=== PATIENT | female | born 1950 | race Caucasian/White ===

== ENCOUNTER 2019-04-06 09:42 | Outpatient (CLI) | payer MEDICARE, OTHER, SELFPAY ==
--- NOTE | ~2019-04-06 | MM_ITS ---
EXAMINATION: MM screening [facility] BI w florentin HISTORY: Screening mammogram TECHNIQUE: Craniocaudal and mediolateral oblique 3-D tomosynthesis images were obtained and synthetic 2-D images were generated. CAD analysis was submitted and interpreted. COMPARISON: Comparison to multiple prior studies sequentially, with oldest reviewed study dated 12/11. BREAST PARENCHYMAL COMPOSITION: There are scattered areas of fibroglandular density. FINDINGS: There is no evidence of suspicious mass, calcification, or architectural distortion to sugg est malignancy in either breast. There has been no suspicious interval change. IMPRESSION: 1. No mammographic evidence of malignancy. 2. Recommend routine screening mammography in one year. BI-RADS Category 1: Negative Reviewed, dictated and finalized at location A. D BUILDER
== END 2019-04-06 09:43 | disposition home or self-care (01) ==
PROVIDERS: PCP Family Medicine; Visit Provider Family Medicine
DX: Z12.31 Encounter for screening mammogram for malignant neoplasm of breast (principal)
CPT/HCPCS: 77063; 77067

== ENCOUNTER 2020-03-27 07:51 | Outpatient (CLI) | payer MEDICARE, OTHER, SELFPAY ==
--- NOTE | ~2020-03-27 | US_ITS ---
EXAMINATION: US right upper quadrant DATE: 03/27/2020 08:25 INDICATION: Right upper quadrant pain TECHNIQUE: Multiple grayscale and Doppler ultrasound images of the abdomen were obtained. COMPARISON: 03/02/2018 FINDINGS: Bowel gas obscures visualization of the pancreas. The liver is normal with normal echogenic ity and echotexture. No surface nodularity. Normal hepatopetal flow in the main portal vein. The gall bladder is surgically absent. The normal common bile duct measures 4 mm. IMPRESSION: 1. Unremarkable postcholecystectomy ultrasound. Reviewed, dictated and finalized at location A. RVISOR PUBLICATIONS
== END 2020-03-27 07:52 | disposition home or self-care (01) ==
LOC: ANHIMG 08:01
PROVIDERS: PCP Family Medicine; Visit Provider Nurse Practitioner
DX: R10.11 Right upper quadrant pain (principal)
CPT/HCPCS: 76705

== ENCOUNTER 2020-04-11 09:46 | Outpatient (CLI) | payer MEDICARE, OTHER, SELFPAY ==
--- NOTE | ~2020-04-11 | MM_ITS ---
EXAMINATION: MM screening [facility] BI w florentin HISTORY: Screening TECHNIQUE: Craniocaudal and mediolateral oblique 3-D tomosynthesis images were obtained and synthetic 2-D images were generated. CAD analysis was submitted and interpreted. COMPARISON: Comparison to multiple prior studies sequentially, with oldest reviewed study dated 01/10. BREAST PARENCHYMAL COMPOSITION: There are scattered areas of fibroglandular density. FINDINGS: There is no evidence of suspicious mass, calcification, or architectural distortion to sugg est malignancy in either breast. There has been no suspicious interval change. IMPRESSION: 1. No mammographic evidence of malignancy. 2. Recommend routine screening mammography in one year. BI-RADS Category 1: Negative Reviewed, dictated and finalized at location A. CATCHER
== END 2020-04-11 09:47 | disposition home or self-care (01) ==
LOC: ANHIMG 09:50
PROVIDERS: PCP Family Medicine; Visit Provider Family Medicine
DX: Z12.31 Encounter for screening mammogram for malignant neoplasm of breast (principal)
CPT/HCPCS: 77063; 77067

== ENCOUNTER 2020-06-27 09:09 | Outpatient (CLI) | payer MEDICARE, OTHER, SELFPAY ==
--- NOTE | ~2020-06-27 | XR_ITS ---
EXAMINATION: XR knee LT min 4V DATE: 06/27/2020 09:34 INDICATION: Left knee pain. TECHNIQUE: 4 views of left knee were obtained. COMPARISON: Left knee radiographs 01/17/2009 FINDINGS: Bone alignment is normal. No fracture. There is moderate osteoarthritis of medial compartme nt and mild osteoarthritis of lateral and patellofemoral compartments. There is a small knee joint ef fusion. IMPRESSION: 1. Moderate left knee osteoarthritis. 2. Small left knee joint effusion. Reviewed, dictated and finalized at location A.
--- NOTE | ~2020-06-27 | XR_ITS ---
EXAMINATION: XR lumbar spine 2-3V, XR sacrum coccyx min 2V EXAM DATE: 06/27/2020 09:34 INDICATION: Low back pain, lumbosacral pain. TECHNIQUE: Lumber spine frontal, lateral, lateral L5-S1 projections for interpretation. Sacrococcyge al frontal, inlet, lateral projections. Comparison is made to prior examination from 03/09/10. FINDINGS: Mildly comminuted distal sacral fracture with about 6 mm anterior displacement, probably ac sault ste[place] marie to subacute in age. There is a transitional L5 segment which is fused to the sacrum. There is 3 m m anterolisthesis L4 on L5. The vertebral bodies are otherwise aligned. Moderate to severe disc disea se L3-L5, moderate from T11 through L3. There is L4 limbus vertebral body. Small to moderate-sized en dplate osteophytes. Moderate to severe lower lumbar facet arthropathy. Moderate scattered aortic dick riosclerosis. There are cholecystectomy clips. IMPRESSION: 1. Distal sacral fracture with mild anterior displacement, comminution. 2. Moderate to severe lumbar spondylosis. Reviewed, dictated and finalized at location A. IMPRESSION: 1. Distal sacral fracture with mild anterior displacement, comminution. 2. Moderate to severe lumbar spondylosis.
== END 2020-06-27 09:10 | disposition home or self-care (01) ==
LOC: ANHIMG 09:16
PROVIDERS: PCP Family Medicine; Visit Provider Nurse Practitioner
DX: M47.816 Spondylosis without myelopathy or radiculopathy, lumbar region (principal); M17.12 Unilateral primary osteoarthritis, left knee
CPT/HCPCS: 72100; 72220; 73564

== ENCOUNTER → 2020-07-14 08:10 | Outpatient (CLI) | payer MEDICARE, OTHER, SELFPAY ==
--- NOTE | ~2020-07-14 | MR_ITS ---
EXAMINATION: MR lumbar spine wo con DATE: 07/14/2020 08:59 INDICATION: Low back pain. Sacral fracture. TECHNIQUE: Magnetic resonance imaging (MRI) of the lumbar spine was performed without intravenous con trast. Sequences included sagittal T2-weighted FSE, sagittal T2-weighted FS FSE, sagittal T1-weighted FSE, and axial T2-weighted FSE. COMPARISON: Lumbar spine radiographs 06/27/2020, CT abdomen and pelvis 03/03/2019 FINDINGS: There is a transitional segment at lumbosacral junction that is designated L5. There is 3 m m anterolisthesis of L4 on L5. There are Schmorl's nodes at most levels. There is moderately decrease d disc height at T12-L1, severely decreased disc height at L1-L2, moderately decreased disc height at L2-L3, severely decreased disc height at L3-L4, and mildly decreased disc height at L4-L5 with endpl ate remodeling. There is ligamentum flavum hypertrophy at the disc levels from L1-L2 through L4-L5. E pidural lipomatosis is noted. The distal spinal cord signal intensity is normal. The conus medullaris is at T12. The following disc levels are specifically discussed: T12-L1: The disc is bulging and has an annular fissure. There is mild bilateral facet joint osteoarth ritis. There is mild right and moderate left neural foraminal stenosis. There is mild central canal s tenosis. L1-L2: The disc is bulging and has an annular fissure. There is severe bilateral facet joint osteoart hritis. There is moderate bilateral neural foraminal stenosis. There is moderate central canal stenos is. L2-L3: The disc is bulging and has an annular fissure. There is severe bilateral facet joint osteoart hritis. There is moderate bilateral neural foraminal stenosis. There is moderate central canal stenos is. L3-L4: The disc is bulging and has an annular fissure. There is severe bilateral facet joint osteoart hritis. There is moderate bilateral neural foraminal stenosis. There is moderate central canal stenos is. L4-L5: The disc does not extend beyond the endplate margin. There is severe bilateral facet joint ost eoarthritis. There is mild bilateral neural foraminal stenosis. There is no central canal stenosis. L5-S1: The disc does not extend beyond the endplate margin. There is no facet joint osteoarthritis. T here is no neural foraminal stenosis. There is no central canal stenosis. IMPRESSION: 1. Severe lumbar spondylosis. Reviewed, dictated and finalized at location A.
== END ==
PROVIDERS: Visit Provider Nurse Practitioner
DX: M47.896 Other spondylosis, lumbar region (principal)
CPT/HCPCS: 72148

== ENCOUNTER → 2020-08-28 13:23 | Outpatient (CLI) | payer MEDICARE, OTHER, SELFPAY ==
--- NOTE | ~2020-08-28 | DEXA_ITS ---
Bone Density Report Name: Julianne Herring Age: 69 Sex: Female Ethnicity: White Date of : 1950 Indication: postmenopausal; screening for osteoporosis; height loss; hysterectomy; Referring Provider: Michael, Bertha Sanchez Study: Bone densitometry was performed. Exam Date: August 28, 2020 Accession number: [id number] Bone Density: Region BMD T-score Z-score Classification AP Spine (L1, L2, L3) 1.384 3.3 5.2 Normal Femoral Neck (Left) 0.887 0.3 2.0 Normal Total Hip (Left) 0.997 0.5 1.8 Normal Femoral Neck (Right) 1.010 1.4 3.1 Normal Total Hip (Right) 1.074 1.1 2.5 Normal Total Hip Mean 1.036 0.8 2.2 Normal World Health Organization criteria for BMD impression classify patients as: Normal (T-score at or above -1.0), Osteopenia (T-score between -1.0 and -2.5), or Osteoporosis (T-score at or below -2.5). 10-year Fracture Risk: FRAX not reported because: All T-scores for Spine Total, Hip Total, Femoral Neck at or above -1.0 Clinical Information Provided by Patient: Has used the following medications: Vitamin D Has the following medical conditions: Hysterectomy Patient maximum height was 67 Menopause Age: 33 No regular weight bearing exercise Drinks caffeinated beverages Onset of menses at age 15 Number of children 2 Impression: The patient has normal bone mass. Discussion: BONE DENSITY IS ABOVE THE MINIMUM DESIRABLE LEVEL AT ALL SKELETAL SITES TESTED. This patient?s bone mineral density is above the minimum desirable level (T-score -1.0 or better) at all sites measured. The patient should follow a healthful lifestyle (good nutrition with adequate calcium and vitamin D, and appropriate weight-bearing exercise). Follow-Up: Consider repeating this study in 5 years or sooner if there is some new clinical indication. Reported by: JUAN LUIS on 08/28/2020 1:45:00 PM. Reviewed, dictated and finalized at location ALaisha VIRAMONTES
== END ==
PROVIDERS: PCP Family Medicine; Visit Provider Nurse Practitioner
DX: S32.10XA Unspecified fracture of sacrum, initial encounter for closed fracture (principal); X58.XXXA Exposure to other specified factors, initial encounter
CPT/HCPCS: 77080

== ENCOUNTER 2021-04-24 10:31 | Outpatient (CLI) | payer MEDICARE, OTHER, SELFPAY ==
--- NOTE | ~2021-04-24 | MM_ITS ---
EXAMINATION: MM screening [facility] BI w florentin HISTORY: Screening mammogram TECHNIQUE: Craniocaudal and mediolateral oblique 3-D tomosynthesis images were obtained and synthetic 2-D images were generated. CAD analysis was submitted and interpreted. COMPARISON: 04/11/2020, 04/06/2019, 04/02/2018 BREAST PARENCHYMAL COMPOSITION: There are scattered areas of fibroglandular density. FINDINGS: There is no evidence of suspicious mass, calcification, or architectural distortion to sugg est malignancy in either breast. There has been no suspicious interval change. IMPRESSION: 1. No mammographic evidence of malignancy. 2. Recommend routine screening mammography in one year. BI-RADS Category 1: Negative Reviewed, dictated and finalized at location A.
== END 2021-04-24 10:32 | disposition home or self-care (01) ==
LOC: ANHIMG 10:32
PROVIDERS: PCP Family Medicine; Visit Provider Family Medicine
DX: Z12.31 Encounter for screening mammogram for malignant neoplasm of breast (principal)
CPT/HCPCS: 77063; 77067

== ENCOUNTER 2021-12-06 12:48 | Outpatient (CLI) | payer MEDICARE, OTHER, SELFPAY ==
--- NOTE | ~2021-12-06 | US_ITS ---
EXAMINATION: US carotid duplex BI DATE: 12/06/2021 14:05 INDICATION: Carotid atherosclerosis and stenosis. Headache, hypertension, neck pain, dizziness and gi ddiness. TECHNIQUE: Grayscale, color Doppler, and pulsed Doppler images of the cervical carotid arteries were obtained. The degree of vessel stenosis is placed in one of the following categories: normal, <50%, 5 0-69%, >=70% but less than near-occlusion, near-occlusion, or total occlusion. Note that percent sten osis relative to normal distal artery lumen diameter is indirectly measured from velocity measurement s as described by Urbano, et al. Radiology 2003; 229:340-346. COMPARISON: 04/25/2016 FINDINGS: RIGHT: The right common carotid artery (CCA) peak systolic velocity (PSV) is 100 cm/s. The right internal ca rotid artery (ICA) PSV is 103 cm/s. The right ICA end-diastolic velocity (EDV) is 27 cm/s. The right ICA/CCA PSV ratio is 1.0. Grayscale and color Doppler images yield an estimate of <50% diameter reduc tion from plaque in the ICA. The external carotid artery (ECA) PSV is 118 cm/s. There is antegrade fl ow in the right vertebral artery. LEFT: The left CCA PSV is 86 cm/s. The left ICA PSV is 114 cm/s. The left ICA EDV is 36 cm/s. The left ICA/ CCA PSV ratio is 1.3. Grayscale and color Doppler images yield an estimate of <50% diameter reduction from plaque in the ICA. The ECA PSV is 76 cm/s. There is antegrade flow in the left vertebral artery . IMPRESSION: 1. <50% stenosis in the right internal carotid artery. 2. <50% stenosis in the left internal carotid artery. Reviewed, dictated and finalized at location A.
== END 2021-12-06 12:49 | disposition home or self-care (01) ==
PROVIDERS: PCP Family Medicine; Visit Provider Nurse Practitioner Adult Health
DX: R51.9 Headache, unspecified (principal); R42 Dizziness and giddiness; I10 Essential (primary) hypertension; M54.2 Cervicalgia; I65.23 Occlusion and stenosis of bilateral carotid arteries
CPT/HCPCS: 93880

== ENCOUNTER 2022-06-06 09:52 | Outpatient (CLI) | payer MEDICARE, OTHER, SELFPAY ==
--- NOTE | ~2022-06-06 | MM_ITS ---
EXAMINATION: MM screening [facility] BI w florentin HISTORY: Screening mammogram TECHNIQUE: Craniocaudal and mediolateral oblique 3-D tomosynthesis images were obtained and synthetic 2-D images were generated. CAD analysis was submitted and interpreted. COMPARISON: 04/24/2021, 04/11/2020, 04/06/2019 bilateral screening mammogram examinations BREAST PARENCHYMAL COMPOSITION: The breasts are almost entirely fatty. FINDINGS: There is no evidence of suspicious mass, calcification, or architectural distortion to sugg est malignancy in either breast. There has been no suspicious interval change. IMPRESSION: 1. No mammographic evidence of malignancy. 2. Recommend routine screening mammography in one year. BI-RADS Category 1: Negative Reviewed, dictated and finalized at location A.
== END 2022-06-06 09:53 | disposition home or self-care (01) ==
LOC: ANHIMG 09:55
PROVIDERS: PCP Family Medicine; Visit Provider Family Medicine
DX: Z12.31 Encounter for screening mammogram for malignant neoplasm of breast (principal)
CPT/HCPCS: 77063; 77067

== ENCOUNTER 2023-08-07 12:30 | Outpatient (CLI) | payer MEDICARE, OTHER, SELFPAY ==
--- NOTE | ~2023-08-07 | US_ITS ---
US renal BI Ordering provider: Alexis Murphy, [facility] RESEARCHER History: . BI FLANK PAIN . Comparison: None. Technique: Ultrasound bilateral kidneys. Findings: RIGHT KIDNEY: Measures 10.2x 6.1x 5.8 cm in length which is normal in size. No renal cysts. No renal mass or visualized echogenic stones. Otherwise, normal echotexture and contour. No hydronephrosis. No rmal renal cortical thickness. Trace of fluid is seen around the kidney. LEFT KIDNEY: Measures 11.9x 6.2x 5.9 cm in length which is normal in size. Inferior pole cyst is seen measuring 1 x 0.8 x 1.2 cm. No renal mass or visualized echogenic stones. Otherwise, normal echotext ure and contour. No hydronephrosis. Normal renal cortical thickness. BLADDER: Normal. The volume is 273 mL Ureteral jets were not seen bilaterally. IMPRESSION: Trace of fluid around the right kidney. Small cyst in the left kidney. Otherwise, normal study. Reviewed, dictated and finalized at location A.
== END 2023-08-07 12:31 | disposition home or self-care (01) ==
LOC: ANHIMG 12:34
PROVIDERS: PCP Family Medicine; Visit Provider Registered Nurse
DX: N28.1 Cyst of kidney, acquired (principal)
CPT/HCPCS: 76775

== ENCOUNTER 2023-08-21 09:43 | Outpatient (CLI) | payer MEDICARE, OTHER, SELFPAY ==
--- NOTE | ~2023-08-21 | MM_ITS ---
EXAMINATION: MM screening [facility] BI w florentin HISTORY: Screening TECHNIQUE: Craniocaudal and mediolateral oblique 3-D tomosynthesis images were obtained and synthetic 2-D images were generated. CAD analysis was submitted and interpreted. COMPARISON: Comparison to multiple prior studies sequentially, with oldest reviewed study dated 03/27. BREAST PARENCHYMAL COMPOSITION: Not dense: There are scattered areas of fibroglandular density. FINDINGS: There is no evidence of suspicious mass, calcification, or architectural distortion to sugg est malignancy in either breast. There has been no suspicious interval change. IMPRESSION: 1. No mammographic evidence of malignancy. 2. Recommend routine screening mammography in one year. BI-RADS Category 1: Negative Reviewed, dictated and finalized at location B.
== END 2023-08-21 09:44 | disposition home or self-care (01) ==
LOC: ANHIMG 09:44
PROVIDERS: PCP Family Medicine; Visit Provider Family Medicine
DX: Z12.31 Encounter for screening mammogram for malignant neoplasm of breast (principal)
CPT/HCPCS: 77063; 77067

== ENCOUNTER 2023-09-24 09:30 | Outpatient (RCR) | payer MEDICARE, OTHER, SELFPAY ==
[2023-09-02 10:40] VITALS: BMI 32.0
[2023-09-24 09:35] VITALS: BMI 31.8
[2023-09-24 12:55] VITALS: BMI 31.8
== END 2023-11-17 10:16 | disposition home or self-care (01) ==
LOC: ANHDMC 09:30
PROVIDERS: PCP Family Medicine; Visit Provider Family Medicine
DX: E11.9 Type 2 diabetes mellitus without complications (principal); Z71.3 Dietary counseling and surveillance
CPT/HCPCS: 97802; 97803

== ENCOUNTER 2024-08-07 11:52 | Outpatient (CLI) | payer MEDICARE, OTHER, SELFPAY ==
--- NOTE | ~2024-08-07 | US_ITS ---
EXAMINATION: US renal BI DATE: 08/07/2024 12:15 INDICATION: R94.4 - Abnormal results of kidney function studies TECHNIQUE: Multiple grayscale and Doppler ultrasound images of the kidneys were obtained. COMPARISON: 08/07/2023; CT abdomen pelvis 03/03/2019 FINDINGS: The right kidney measures 11.0 x 5.8 x 5.0 cm. The left kidney measures 12.2 x 4.5 x 4.8 cm. The kidn eys demonstrate normal parenchymal echogenicity. 1.9 cm simple appearing left inferior pole cyst Ther e is no hydronephrosis. The bladder is partially decompressed and incompletely evaluated. IMPRESSION: Unremarkable renal sonogram findings. Reviewed, dictated and finalized at location K.
== END 2024-08-07 11:53 | disposition home or self-care (01) ==
LOC: MICIMG 11:53
PROVIDERS: PCP Family Medicine; Visit Provider Internal Medicine Nephrology
DX: R94.4 Abnormal results of kidney function studies (principal); E11.9 Type 2 diabetes mellitus without complications; I10 Essential (primary) hypertension
CPT/HCPCS: 76775

== ENCOUNTER 2024-09-22 14:10 | Outpatient (CLI) | payer MEDICARE, OTHER, SELFPAY ==
--- NOTE | ~2024-09-22 | MM_ITS ---
EXAMINATION: MM screening [facility] BI w florentin HISTORY: Screening TECHNIQUE: Craniocaudal and mediolateral oblique 3-D tomosynthesis images were obtained and synthetic 2-D images were generated. CAD analysis was submitted and interpreted. COMPARISON: Comparison to multiple prior studies sequentially, with oldest reviewed study dated 04/02. BREAST PARENCHYMAL COMPOSITION: Not dense: There are scattered areas of fibroglandular density. FINDINGS: There is no evidence of suspicious mass, calcification, or architectural distortion to sugg est malignancy in either breast. There has been no suspicious interval change. IMPRESSION: 1. No mammographic evidence of malignancy. 2. Recommend routine screening mammography in one year. BI-RADS Category 1: Negative Reviewed, dictated and finalized at location A.
--- OUTSIDE RECORDS SUMMARY | 2024-09-22 14:16 | XMS_ITS | Clinical Summary ---
Author Organization [facility] Physician Office Building [address] [place] [id number] Care Team Providers Care Meter Repairer Name Role Phone Jass Calix MD Primary Care Provider [phone] Doreen Cote MD Unavailable [phone] Pan Abdullahi MD Unavailable [phone] Allergies Active Allergy Reactions Criticality Noted Date Comments Edward Inhibitors Unknown 10/03/2015 Glimepiride Hives Medium 07/09/2018 Hydrocodone Headache High 07/09/2018 Ibuprofen Unknown 10/03/2015 Nitrofurantoin Unknown 07/08/2023 Metformin Unknown 10/07/2023 Semaglutide Diarrhea,Stomach upset Low 04/10/2022 Sulfa (Sulfonamide Antibiotics) Other (See comments) Low 10/03/2015 Medications ALPRAZolam (XANAX) 1 mg tablet 06/23/2018 Active PRECISION XTRA TEST strip 05/26/2018 Active TRICOR 145 mg tablet 05/09/2018 Active hydroCHLOROthiaz nicole (HYDRODIURIL) 25 mg tablet 05/09/2018 Active losartan (COZAAR) 100 mg tablet 05/20/2018 Active TOPROL XL 100 mg 24 hr tablet 05/09/2018 Active DETROL LA 2 mg 24 hr capsule 06/16/2018 Activ e acetaminophen (TylenoL) 325 mg capsule Take 1,000 mg by mouth Active pantoprazole DR (PROTONIX) 40 mg EC tablet Take 1 tablet (40 mg total) by mouth daily 10/11/2020 Active atorvastatin (LIPITOR) 80 mg tablet 12/02/2022 Active fluconazole (DIFLUCAN) 150 mg tablet 12/26/2023 Active triamcinolone (KENALOG) 0.1 % cream 12/26/2023 Active tirzepatide (MOUNJARO) 7.5 mg/0.5 mL pen injector injectionIndicat ions:type 2 diabetes mellitus Inject 0.5 mL (7.5 mg total) under the skin every 7 days 6 mL 3 07/29/2024 6 Active Active Problems Problem Noted Date Diagnosed Date CKD stage 3a, GFR 45-59 ml/min 10/08/2023 Assessment & Plan (07/29/2024 1:47 PM CDT): Chronic problem. Has an appointment to establish care with Dr Yasmeen Abdullahi at [facility] 08/03/24. Assessment & Plan (01/28/2024 1:09 PM RECREATION ESTABLISHMENT MANAGER): Chronic problem, she has a lot of concerns with this and requests referral to nephrology, also so she can meet with renal appliance fixer. Assessment & Plan (10/08/2023 8:54 AM CDT): Add SGLT2 inhibitor Hypertension associated with diabetes 10/08/2023 Assessment & Plan (07/29/2024 1:55 PM CDT): Chronic problem. Controlled on current losartan 100mg daily, metoprolol XL 100mg daily, HCTZ 12.5mg daily Assessment & Plan (01/28/2024 1:07 PM RECREATION ESTABLISHMENT MANAGER): Chronic problem, Controlled on losartan, HCTZ, metoprolol. No changes. Assessment & Plan (10/08/2023 8:54 AM CDT): Chronic, well controlled Continue losartan, hydrochlorothiazide and metoprolol XL Hyperlipidemia associated with type 2 diabetes agueda merino 10/08/2023 Assessment & Plan (07/29/2024 1:39 PM CDT): Chronic problem. Near goal on current Atorvastatin 80mg, Tricor 145mg daily. Last lipid panel: 07/13/24 LDL=86, QU=939. Assessment & Plan (01/28/2024 1:07 PM RECREATION ESTABLISHMENT MANAGER): Chronic problem. On statin therapy, no changes. Assessment & Plan (10/08/2023 8:54 AM CDT): Continue statin therapy Class 1 obesity due to exces s calories with serious comorbidity and body mass index (BMI) of 31.0 to 31.9 in adult 10/08/2023 Assessment & Plan (10/08/2023 8:53 AM CDT): Counseled on diet and exercise Type 2 diabetes mellitus wit h hyperglycemia, without long-term current use of insulin 07/09/2018 Assessment & Plan (07/29/2024 1:44 PM CDT): Chronic problem. A1c at goal & improved from 7.4% 04/19/24 to now 6.6%. -will increase Mounjaro from 5mg to 7.5mg weekly as she's noting that appetite suppression is dissipated. Current medications: Mounjaro 7.5 mg weekly UTD on DM eye exam (12/31/23 no DMR) UTD on labs. Discussed with Julianne Herring: Strive for regular exercise (30min most days) and diet (get at least 4-5 servings of fruit and veggies daily, avoid processed foods, increase lean protein intake and decrease carb portions as well as fruit juices, regular soda & desserts). Watch carbs and simple sugars. Check the feet daily for skin breakdown and infection. Assessment & Plan (01/28/2024 1:09 PM RECREATION ESTABLISHMENT MANAGER): Chronic problem, improving but sounds like she is developing vaginal irritation/ topical yeast infection. She has a history of these and has diflucan at home. We discussed this as an AE of Jardiance, if she has recurrent issues she needs to stop it and let us know. Unfortunately she's been intolerant of multiple other medications. She'll let us know how she does. Request eye exam. Assessment & Plan (10/08/2023 8:55 AM CDT): Chronic, uncontrolled, worsening A1c 7.9%, goal A1c less than 7.5% without hypoglycemia Counseled on diet and exercise Recommend to continue Januvia 100 mg oral daily Start SGLT2 inhibitors Discussed coping mechanism of action, side effects and benefits Start Jardiance 25 mg oral daily Advised good oral hydration Also discuss with patient regarding risk urinary tract infections and yeast infections. Advised patient to notify me if she is developing frequently. Also advised patient to notify if she is developing dizziness or lightheadedness Check urine microalbuminuria Obtain patient's last eye exam copy Follow-up in 3 months Assessment & Plan (07/09/2018 4:31 PM CDT): Hba1c was Lab Results Component Value Date HGBA1C 7.0 07/09/2018 today, indicating adequate DM control. I explained to the patient how a hemoglobin A1c of 7, in a patient with any evidence of long-term target organ damage from diabetes, is perfectly adequate. I recommended to work on a a lower carb diet, which will help to lower hemoglobin A1c as she desires 25-45 min daily exercise, combining both aerobic and resistance exercise recommended. I have recommended to continueTrulicity I do not see the need for adding any pharmacological treatment now. Encounters Date Type Department Care Team Description 07/29/2024 1:30 PM CDT Office Visit [facility] Diabetes and Endocrinology [address] [place] [id number] Pippa Salazar, DEVIKA Type 2 diabetes mellitus with hyperglycemia, without long-term current use of insulin (HCC) (Primary Dx); Hypertension associated with diabetes (HCC); Hyperlipidemia associated with type 2 diabetes mellitus (HCC); CKD stage 3a, GFR 45-59 ml/min (HCC) 07/14/2024 Results Follow-Up [facility] Specialists of [address] [address] Doreen Cote MD Comprehensive metabolic panel, Albumin Creatinine Ratio, Urine, Lipid panel, Thyroid Function Bradley from Last 3 Months Medical History Medical History Date Comments Anxiety Hypertension Hyperlipidemia Fatty liver Melanoma (HCC) Type 2 diabetes mellitus Family History Medical History Relation Name Comments Coronary artery disease Father Diabetes Father Hypertension Father Lung cancer Father Diabetes Mother Hypertension Mother Relation Name Status Comments Father Mother Social History Tobacco Use Types Packs/Day Years Used Date Smoking Tobacco: Never Alcohol Use Standard Drinks/Week Comments Not Currently 0 (1 standard drink = 0.6 oz pur e alcohol) PHQ-2 Answer Date Recorded PHQ-2 Total Score (If total score is 3 or more points, staff should administer the PHQ-9) 4 01/28/2024 Comments Unknown Sex and Gender Information Value Date Recorded Sex Assigned at Not on file Legal Sex Female 2:36 AM RECREATION ESTABLISHMENT MANAGER Gender Identity Female 05/27/2023 3:01 PM CDT Sexual Orientation Straight 05/22/2023 2: 07 PM CDT Obstetrics History Last Filed Vital Signs Vital Sign Reading Time Taken Comments Blood Pressure 138/80 07/29/2024 1:12 PM CDT Pulse 75 07/29/2024 1:12 PM CDT Temperature 36.6 C (97.8 F) 07/08/2023 1:56 PM CDT Respiratory Rate 16 07/29/2024 1:12 PM CDT Oxygen Saturation 98% 07/08/2023 1:56 PM CDT Inhaled Oxygen Concentration - - Weight 85.3 kg (188 lb) 07/29/2024 1:12 PM CDT Height 165.1 cm (5' 5) 07/29/2024 1:12 PM CDT Body Mass Index 31.28 07/29/2024 1:12 PM CDT Plan of Treatment Health Maintenance Due Date Last Done Comments Breast Cancer Screening-Mammogram 1950 Colon Cancer Screening-Colonoscopy 1950 Hepatitis C Screening 1950 Osteoporosis Screening-Bone Density Scan 1950 Zoster Vaccine (1 of 2) 2002 Well Visit 65+ 2017 Pneumococcal vaccine 65+ (2 of 2 - PCV) 04/20/2020 04/21/2019, 10/19/2002 Covid-19 Vaccine (5 - 2023-2 5 season) 2023 05/14/2021, 11/01/2020, 04/10/2020, Additional history exists Influenza Vaccine (#1) 2024 , 10/20/2020, 10/28/2019, Additional history exists Depression Screening 01/27/2025 01/28/2024, 10/07/19 24 Fall Risk Assessment 01/27/2025 01/28/2024, 10/07/19 24 Hemoglobin A1C 01/28/2025 07/29/2024, 03, 01/28/2024, Additional history exists Albumin Creatinine Ratio, Urine 07/13/2025 07/13/2024, 10/07/2023, 07/15/2018 Lipid Panel 07/13/2025 07/13/2024, 10/07/2023 eGFR 07/13/2025 07/13/2024, 10/07/2023 Foot Exam 07/29/2025 07/29/2024, 09/11, 07/09/2018 Dilated Eye Exam 12/30/2025 12/31/2023 DTaP/Tdap/Td Vaccine (2 - Td or Tdap) 11/28/2027 11/27/2017, 12/01/2000 Hepatitis B Screening Completed 05/05/2006 , 12/04/2005, 10/30/2005 Procedures Procedure Name Priority Date/Time Associated Diagnosis Comments POCT HEMOGLOBIN A1C Routine 07/29/2024 1 :17 PM CDT Type 2 diabetes mellitus with hyperglycemia, without long-term current use of insulin (HCC) POCT GLUCOSE Routine 07/29/2024 1:17 PM CDT Type 2 diabetes mellitus with hyperglycemia, without long-term current use of insulin (HCC) THYROID FUNCTION CASCADE Routine 07/13/2024 8:18 AM CDT Type 2 diabetes mellitus with hyperglycemia, without long-term current use of insulin (HCC) LIPID PANEL Routine 07/13/2024 8:18 AM CDT Type 2 diabetes mellitus with hyperglycemia, without long-term current use of insulin (HCC) Hyperlipidemia associated with type 2 diabetes mellitus (HCC) ALBUMIN CREATININE RATIO, URINE Routine 07/13/2024 8:18 AM CDT Type 2 diabetes mellitus with hyperglycemia, without long-term current use of insulin (HCC) Hypertension associated with diabetes (HCC) CKD stage 3a, GFR 45-59 ml/min (HCC) COMPREHENSIVE METABOLIC PANEL Routine 07/13/2024 8:18 AM CDT Type 2 diabetes mellitus with hyperglycemia, without long-term current use of insulin (HCC) Hypertension associated with diabetes (HCC) Hyperlipidemia associated with type 2 diabetes mellitus (HCC) CKD stage 3a, GFR 45-59 ml/min (HCC) DIABETES EYE EXAM Routine 12/31/2023 7:35 AM RECREATION ESTABLISHMENT MANAGER from Last 3 Months or Most Recently Relevant to Health Maintenance Results * (ABNORMAL) POCT hemoglobin A1c (07/29/2024 1:17 PM CDT) Pathologist [facility] Hemoglobin A1C, POC 6.6(A) 4.0 - 5.6 % Blood 07/29/2024 1:17 PM CDT us Pippa Salazar QUALITY CONTROL SCIENTIST POINT OF CARE TEST ORDERA BLES Final Result * (ABNORMAL) POCT glucose (07/29/2024 1:17 PM CDT) Pathologist [facility] Glucose Blood, POC 135 Normal Fasting 70 - 100, Random <200 mg/dL Blood 07/29/2024 1:17 PM CDT us Pippa Salazar QUALITY CONTROL SCIENTIST POINT OF CARE TEST ORDERA BLES Final Result * Thyroid Function Bradley (07/13/2024 8:18 AM CDT) TSH 2.250 0.450 - 4.500 uIU/mL [facility] - 01 Comment: No apparent thyroid disorder. Additional testing not indicated. In rare instances, Secondary Hypothyroidism as well as Subclinical Hypothyroidism have been reported in some patients with normal TSH values. Blood 07/13/2024 8:18 AM CDT 07/13/2024 Narrative [facility] - 07/14/2024 2:08 AM CDT Performed at: 01 - [facility] [place] [address], [place], [place] [id number] Contracting Engineer: Hernandez Schultz PhD, Phone: [phone] us Doreen Aponte MD LAB BLOOD ORDERABLE S Final Result Performing Organization Address [facility]/ZIP Co de Phone Number [facility] - * Albumin Creatinine Ratio, Urine (07/13/2024 8:18 AM CDT) Creatinine ur 44.9 Not Estab. mg/dL [facility] - 01 Microalbumin, ur <3.0 Not Estab. ug/mL [facility] - 01 Microalbumin/cre at ratio <7 0 - 29 mg/g creat [facility] - 01 Comment: Normal: 0 - 29 Moderately increased: 30 - 300 Severely increased: >300 Urine 07/13/2024 8:18 AM CDT 07/13/2024 Narrative [facility] - 07/14/2024 11:11 AM CDT Performed at: - [address] [id number] Contracting Engineer: Hernandez Schultz PhD, Phone: [phone] us Doreen Aponte MD LAB URINE ORDERABLE S Final Result Performing Organization Address [facility]/ZIP Co de Phone Number [facility] - * Lipid panel (07/13/2024 8:18 AM CDT) Cholesterol 153 100 - 199 mg/dL [facility] - 01 Triglycerides 105 0 - 149 mg/dL [facility] - 01 HDL Cholesterol 48 >39 mg/dL [facility] - 01 VLDL 19 5 - 40 mg/dL [facility] - 01 LDL, calculated 86 0 - 99 mg/dL [facility] - 01 Blood 07/13/2024 8:18 AM CDT 07/13/2024 Narrative [facility] - 07/14/2024 1:07 AM CDT Performed at: [address] [id number] Contracting Engineer: Hernandez Schultz PhD, Phone: [phone] us Doreen Aponte MD LAB BLOOD ORDERABLE S Final Result Performing Organization Address City/[facility]/ZIP Co va Phone Number [facility] - 01 * (ABNORMAL) Comprehensive metabolic panel (07/13/2024 8:18 AM CDT) Glucose 141(H) 70 - 99 mg/dL [facility] - 01 BUN 24 8 - 27 mg/dL [facility] - 01 Creatinine, Serum 1.17(H) 0.57 - 1.00 mg/dL [facility] - 01 eGFR 50(L) >59 mL/min/1.7 3 [facility] - 01 BUN/creat ratio 21 12 - 28 [facility] - 01 Sodium 141 134 - 144 mmol/L [facility] - 01 Potassium, sr 4.1 3.5 - 5.2 mmol/L [facility] - 01 Chloride 101 96 - 106 mmol/L [facility] - 01 CO2 23 20 - 29 mmol/L [facility] - 01 Calcium 9.9 8.7 - 10.3 mg/dL [facility] - 01 Protein, sr 7.2 6.0 - 8.5 g/dL [facility] - 01 Albumin 4.4 3.8 - 4.8 g/dL [facility] - 01 Globulin, Total 2.8 1.5 - 4.5 g/dL [facility] - 01 Bilirubin, Total 0.3 0.0 - 1.2 mg/dL [facility] - 01 Alk phos 83 44 - 121 IU/L [facility] - 01 AST 20 0 - 40 IU/L [facility] - 01 ALT 13 0 - 32 IU/L [facility] - 01 Blood 07/13/2024 8:18 AM CDT 07/13/2024 Narrative [facility] - 07/14/2024 1:07 AM CDT Performed at: [address] [place] [id number] Contracting Engineer: Hernandez Schultz PhD, Phone: [phone] us Doreen Aponte MD LAB BLOOD ORDERABLE S Final Result [facility] - 01 * DIABETES EYE EXAM (12/31/2023 7:35 AM RECREATION ESTABLISHMENT MANAGER) us Historical Provider MD HEALTH MAINTENANCE Final Result from Last 3 Months or Most Recently Relevant to Health Maintenance Insurance MEDICARE [employer] MEDICARE FOR LIFE Care Teams Meter Repairer Relationship Specialty Start Date End Date Jass Calix MD PCP - General Family Medicine 06/22/18 [place] [id number] [facility] [address] [place] [address] Consulting Physician Endocrinology Diabetes & Metabolism 05/27/24 Pan Abdullahi MD [id number] [facility] [address] [address] Referring Physician Nephrology 05/27/24
--- OUTSIDE RECORDS SUMMARY | 2024-09-22 14:16 | XMS_ITS | Clinical Summary ---
Author Organization [facility] Address [address] [place] [address] Care Team Providers Care Grinding Machine Operator Portable Name Role Phone Olga Clayton DO Primary Care Provider [phone] Social History Tobacco Use Types Packs/Day Years Used Date Smoking Tobacco: Never Assessed Comments Unknown Sex and Gender Information Value Date Recorded Sex Assigned at Not on file Legal Sex Female 7:17 PM CDT Gender Identity Not on file Sexual Orientation Not on file Plan of Treatment Health Maintenance Due Date Last Done Comments Colorectal Cancer Screening Colonoscopy (10 Years) 1952 Hepatitis C 1970 DTaP, Tdap and Td Vaccines ( 1 - Tdap) 11/13/1971 Mammogram Screening 1992 Pneumococcal Vaccine: 50+ Ye ars (1 of 1 - PCV) 2002 Zoster Vaccines (1 of 2) 2002 Dexa Scan (General) 2017 COVID-19 Vaccine (1 - 2023-2 5 season) 2023 RSV Immunization or 60+ Years (1 - 1-dose 75+ series) 11/13/2027 Meningococcal B Vaccine Aged Out No l onger eligible based on patient's age to complete this topic Meningococcal Vaccine Aged Out No tavon guevara eligible based on patient's age to complete this topic RSV Immunizations Under 20 Months Aged Out No longer eligible based on patient's age to complete this topic Care Teams Grinding Machine Operator Portable Relationship Specialty Start Date End Date Olga Clayton DO PCP - General 09/27/15
--- OUTSIDE RECORDS SUMMARY | 2024-09-22 14:16 | XMS_ITS | Clinical Summary ---
Author Organization [facility] Address [address] [facility] [place] [address] Care Team Providers Care Senior Interaction Designer Name Role Phone Jass Calix MD Primary Care Provider Source Comments [facility],non-owned Affiliates and Associated Physician Practices is amultiple site organization consisting of ambulatory clinics and hospital sitesin [place], [place], [place] and [place]. This disclosure is being madepursuant to the Care Everywhere program and may not contain all information available regarding this patient. Last updated 17.[facility] [employer] Allergies Active Allergy Reactions Criticality Noted Date Comments Glimepiride Urticaria Medium 07/09/2018 Hydrocodone Headache High 07/09/2018 Ibuprofen Unknown 10/03/2015 Sulfa Drugs Other 10/03/2015 Medications * Be aware that medications may not be up to date on this document. Alwaysverify current medications with the patient. pantoprazole EC (PROTONIX) 40 MG tablet Take 1 tablet by mouth once daily 1 Active TRULICITY 3 MG/0.5ML injection Inject 3 mg subcutaneously every 7 days 1 Active JANUVIA 25 MG tablet Take 25 mg by mouth once daily 1 Active metoprolol succinate XL 24hr (TOPROL XL) 100 MG tablet Take 1 tablet by mouth once daily 1 Active losartan (COZAAR) 100 MG tablet Take 1 tablet by mouth once daily 1 Active hydroCHLOROthi azide (HYDRODIURIL) 25 MG tablet Take 1 tablet by mouth once daily 1 Active fenofibrate (TRICOR) 145 MG tablet Take 1 tablet by mouth once daily 1 Active ALPRAZolam (XANAX) 1 MG tablet Take 1 tablet by mouth once daily 1 Active atorvastatin (LIPITOR) 80 MG tablet Take 1 tablet by mouth once daily 1 Active DETROL LA 2 MG capsule Take 1 capsule by mouth once daily 1 Active triamcinolone acetonide (KENALOG) 0.1 % ointment 1 Active Acetaminophen (TYLENOL) 325 MG CAPS Take 1,000 mg by mouth Active Active Problems Problem Noted Date Diagnosed Date Abdominal mass 10/19/2020 Allergic rhinitis 10/19/2020 Arthralgia of shoulder 10/19/2020 Myopia 10/19/2020 Benign essential hypertension 10/19/2020 Callus 10/19/2020 Dermatochalasis 10/19/2020 Dysphagia 10/19/2020 Esophageal reflux 10/19/2020 Fatty liver 10/19/2020 Hammer toe 10/19/2020 Hyperlipidemia 10/19/2020 Irritable bowel syndrome 10/19/2020 Knee pain 10/19/2020 Neck swelling 10/19/2020 Numbness 10/19/2020 Overview (10/19/2020): ASSESSMENT: Patient presents with signs/symptoms consistent with right greater than left carpal tunnel syndrome. Patient is a good candidate for rehabilitation. Readiness to learn has been assessed. There are no barriers to treatment. There are no special needs. Goals: (1 week) 1, Patient will independently comply with orthotic wear/care, HEP to prevent increase in symptoms. -- GOAL MET. Osteoarthritis of shoulder 10/19/2020 Presbyopia 10/19/2020 Senile cataract 10/19/2020 Type 2 diabetes mellitus without complication Viral warts 10/19/2020 Immunizations Immunization Administration Dates Next Due HEP A VACCINE, ADULT 10/09/2005,04/08/2005 HEP B VACCINE, ADULT 3 DOSE 05/05/2006, 6,10/30/2005 INFLUENZA VACCINE 10/20/2020 INFLUENZA VACCINE, QUADR. (A FLURIA, FLUZONE QUADRIVALENT; 6MO+) (IIV4) 01/15/2006,01/11/2005,02/08/2004 PNEUMOCOCCAL PPSV23 10/19/2002 Td (Adult), 2 Lf Tetanus Tox oid, Adsorbed, Pf 12/01/2000 Family History Medical History Relation Name Comments Arthritis - Rheumatoid Father CAD (Coronary Artery Disease) Father Cancer - Other Father Diabetes - Type 2 Father Arthritis - Rheumatoid Maternal Grandmother Arthritis - Rheumatoid Mother Diabetes - Type 2 Mother Hypertension Mother Diabetes - Type 2 Paternal Grandmother CAD (Coronary Artery Disease) Sister Relation Name Status Comments Father Maternal Grandmother Mother Paternal Grandmother Sister Social History Tobacco Use Types Packs/Day Years Used Date Smoking Tobacco: Never Smokeless Tobacco: Never Alcohol Use Standard Drinks/Week Comments Never 0 (1 standard drink = 0.6 oz pur e alcohol) Comments Unknown Sex and Gender Information Value Date Recorded Sex Assigned at Not on file Legal Sex Female 9:22 AM CDT Gender Identity Not on file Sexual Orientation Not on file Last Filed Vital Signs Vital Sign Reading Time Taken Comments Blood Pressure 130/78 04/19/2021 11:42 AM PERSONAL SERVICE WORKERS Pulse 91 04/19/2021 11:42 AM PERSONAL SERVICE WORKERS Temperature 35.8 C (96.5 F) 04/19/2021 11:42 AM PERSONAL SERVICE WORKERS Respiratory Rate 18 10/19/2020 9:05 AM CDT Oxygen Saturation 96% 04/19/2021 11:42 AM PERSONAL SERVICE WORKERS Inhaled Oxygen Concentration - - Weight 96.6 kg (213 lb) 04/19/2021 11:42 AM PERSONAL SERVICE WORKERS Height 166.4 cm (5' 5.5) 04/19/2021 11:42 AM CS T Body Mass Index 34.91 04/19/2021 11:42 AM PERSONAL SERVICE WORKERS Plan of Treatment Health Maintenance Due Date Last Done Comments BONE DENSITY TESTING 1950 COLOGUARD (AGES 45-75) - COLON CA SCREENING 1950 COLON MONITORING 1952 COLONOSCOPY - COLON CA SCREENING 1952 CT COLONOGRAPHY - COLON CA SCREENING 1950 Colorectal Cancer Screening 1950 FIT - COLON CA SCREENING 1952 FLEX SIG - COLON CA SCREENING 1950 MAMMOGRAM 1950 HEPATITIS C SCREENING 11/08/1970 DIABETES-SERUM CREATININE 1970 DTAP/TDAP/TD VACCINES (1 - Tdap) 12/02/2000 12/01/2000 ZOSTER VACCINE (1 of 2) 2002 PNEUMOCOCCAL VACCINE 50+ (2 of 2 - PCV) 10/20/2003 10/19/2002 DIABETES-FOOT EXAM WITH MONOFILAMENT 10/19/2020 DIABETES-HGB A1C 10/19/2020 COVID-19 VACCINE ( - season) 2023 DEPRESSION SCREENING 02/11/2024 DIABETES - URINE PROTEIN SCREENING 02/11/2024 INFLUENZA VACCINE (#1) 2024 , 01/15/2006, 01/11/2005, Additional history exists Respiratory Syncytial Virus (RSV) Vaccine Pt: or over 60 yrs (1 - 1-dose 75+ series) 11/13/2027 HEPATITIS B VACCINE Completed 05/05/2006, 12/04/2005, 10/30/2005 HIB VACCINE Aged Out No longer eligi ble based on patient's age to complete this topic HPV VACCINE Aged Out No longer eligi ble based on patient's age to complete this topic MENINGOCOCCAL (Group B) VACCINE SHARED DECISION-MAKING Aged Out No longer eligible based on patient's age to complete this topic MENINGOCOCCAL GROUPS A/C/Y/W VACCINE Aged Out No longer eligible based on patient's age to complete this topic Insurance MEDICARE MEDICARE Care Teams Senior Interaction Designer Relationship Specialty Start Date End Date Jass Calix MD [address] [place] [address] PCP - General 05/27/17
== END 2024-09-22 14:11 | disposition home or self-care (01) ==
LOC: ANHIMG 14:12
PROVIDERS: PCP Family Medicine; Visit Provider Family Medicine
DX: Z12.31 Encounter for screening mammogram for malignant neoplasm of breast (principal)
CPT/HCPCS: 77063; 77067

== ENCOUNTER 2024-12-07 11:54 | Outpatient (CLI) | payer MEDICARE, OTHER, SELFPAY ==
--- OUTSIDE RECORDS SUMMARY | 2024-12-06 10:00 | XMS_ITS | Encounter Summary ---
Author Organization [facility] Healthcare Address [address] [place] [address] Care Team Providers Care Wrapper Stemmer Hand Name Role Phone Jass Calix MD Primary Care Provider [phone] Doreen Cote MD Unavailable [phone] Pan Abdullahi MD Unavailable [phone] Reason for Visit * Reason Comments Diabetes Type 2 Encounter Details Date Type Department Care Team (Late st Contact Info) Description 12/06/2024 10:00 AM CDT Office Visit [facility] Diabetes and Endocrinology [address] [place] [phone] [place] [address] [facility] [address] [place] [address] Type 2 diabetes mellitus with hyperglycemia, without long-term current use of insulin (HCC) (Primary Dx); Hypertension associated with diabetes (HCC); Hyperlipidemia associated with type 2 diabetes mellitus (HCC) Social History Tobacco Use Types Packs/Day Years Used Date Smoking Tobacco: Never Alcohol Use Standard Drinks/Week Comments Not Currently 0 (1 standard drink = 0.6 oz pur e alcohol) PHQ-2 Answer Date Recorded PHQ-2 Total Score (If total score is 3 or more points, staff should administer the PHQ-9) 4 01/28/2024 Comments No Sex and Gender Information Value Date Recorded Sex Assigned at Not on file 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 Gender Identity Female 05/27/2023 3:01 PM CDT Sexual Orientation Straight 05/22/2023 2: 07 PM CDT documented as of this encounter Last Filed Vital Signs Vital Sign Reading Time Taken Comments Blood Pressure 132/78 12/06/2024 9:52 AM CDT Pulse 77 12/06/2024 9:52 AM CDT Temperature - - Respiratory Rate 15 12/06/2024 9:52 AM CDT Oxygen Saturation - - Inhaled Oxygen Concentration - - Weight 86.4 kg (190 lb 6.4 oz) 12/06/2024 9:52 A M CDT Height 165.1 cm (5' 5) 12/06/2024 9:52 AM CDT Body Mass Index 31.68 12/06/2024 9:52 AM CDT documented in this encounter Ordered Prescriptions Prescription Sig Dispense Quantity Refills Last Filled Start Date End Date tirzepatide (MOUNJARO) 7.5 mg/0.5 mL pen injector injectionIndicatio ns:type 2 diabetes mellitus Inject 0.5 mL (7.5 mg total) under the skin every 7 days 6 mL 3 12/06/2024 12/07/2024 documented in this encounter Progress Notes * Doreen Cote MD - 12/06/2024 10:00 AM CDT [facility] ENDOCRINOLOG[facility] Subjective/Objective Patient ID: Julianne Herring is a 74 y.o. female Chief Complaint Diabetes Type 2 HPI This patient has verbally consented to recording this visit in order to utilize AI technology in generating this note. History of Present Illness Julianne, a patient with type 2 diabetes, presents for a follow-up visit. Pt currently on Mounjaro 7.5 mg weekly Pt c/o some nausea and diarrhea for a day post mounjaro injection, which is tolerable at this time Denies any vomiting's No falls A1c today 6.5 % Weight stable Physical Exam VITALS: BP- 124/82 MEASUREMENTS: Weight- 185 lbs. Physical Exam Musculoskeletal: Right foot: No deformity. Left foot: No deformity. Feet: Right foot: Protective Sensation: 5 sites tested. 5 sites sensed. Skin integrity: No ulcer or callus. Left foot: Protective Sensation: 5 sites tested. 5 sites sensed. Skin integrity: No ulcer or callus. Results LABS A1c: 7.4% (04/19/2024) A1c: 7.3% (01/2024) A1c: 7.9% (09/2023) DIAGNOSTIC Eye exam: No abnormalities detected (12/2023) Julianne was seen today for diabetes type 2. Diagnoses and all orders for this visit: Type 2 diabetes mellitus with hyperglycemia, without long-term current use of insulin (HCC) - POCT glucose - tirzepatide (MOUNJARO) 7.5 mg/0.5 mL pen injector injection; Inject 0.5 mL (7.5 mg total) under the skin every 7 days Hypertension associated with diabetes (HCC) Hyperlipidemia associated with type 2 diabetes mellitus ([facility]) Assessment & Plan Type 2 Diabetes Mellitus A1c 7.4, up from 7.3 in January 2024. Patient experiencing side effects from Jardiance (yeast infections, chest discomfort, headaches, hypotension) even at half dose (12.5mg). Currently also on Januvia 100mg. -Discontinue Jardiance and Januvia. -Start Mounjaro 2.5mg for the first month, then increase to 5mg from the second month onwards. -Check labs 1 week before next visit. -Encourage continued physical activity and hydration. -Advise on potential side effects of Mounjaro, including constipation and appetite loss. Hypertension Controlled on Hydrochlorothiazide 25mg, Losartan 100mg, and Toprol XL 100mg daily. Blood pressure today 124/82. -Continue current regimen. Hyperlipidemia Continue atorvastatin 80 mg and fenofibrate General Health Maintenance -Ensure receipt of recent eye exam results. -Next labs due in September 2024. Doreen Aponte MD documented in this encounter Plan of Treatment Not on file documented as of this encounter Procedures Procedure Name Priority Date/Time Associated Diagnosis Comments POCT GLUCOSE Routine 12/06/2024 9:54 AM CDT Type 2 diabetes mellitus with hyperglycemia, without long-term current use of insulin ([facility]) documented in this encounter Results * POCT glucose (12/06/2024 9:54 AM CDT) [facility] Glucose Blood, POC 200 Normal Fasting 70 - 100, Random <200 mg/dL Blood 12/06/2024 9:54 AM CDT Doreen Aponte MD POINT OF CARE TEST ORDERABLES Final Result documented in this encounter Visit Diagnoses Diagnosis Type 2 diabetes mellitus with hyperglycemia, without long-term current use of insulin (HCC)- Primary Hypertension associated with diabetes (HCC) Unspecified essential hypertension Hyperlipidemia associated with type 2 diabetes mellitus (HCC) documented in this encounter Discontinued Medications Medication Sig Discontinue Reason Start Date End Da te oxyCODONE-acetaminophen (PERCOCET) 2.5-325 mg per tablet Patient Reported 09/24/2024 12/06/2024 valACYclovir (VALTREX) 1 gram tablet Patient Reported 09/29/2024 12/06/2024 Dexcom G7 Sensor deviceIndications:Type 2 diabetes mellitus with hyperglycemia, without long-term current use of insulin (HCC) Change sensor every 10 days. Patient Reported 10/06/2024 12/06/2024 Dexcom G7 Crop Consultant miscIndications:Type 2 diabetes mellitus with hyperglycemia, without long-term current use of insulin (HCC) Change sensor every 10 days. Patient Reported 10/06/2024 12/06/2024 tirzepatide (MOUNJARO) 7.5 mg/0.5 mL pen injector injectionIndications:typ e 2 diabetes mellitus Inject 0.5 mL (7.5 mg total) under the skin every 7 days Reorder 07/29/2024 12/06/2024 documented as of this encounter Care Teams Wrapper Stemmer Hand Relationship Specialty Start Date End Date Jass Calix MD PCP - General Family Medicine 06/22/18 [place] [id number] [address] [place] [address] Consulting Physician Endocrinology Diabetes & Metabolism 05/27/24 Pan Abdullahi MD [address] [place] [address] Referring Physician Nephrology 05/27/24 documented as of this encounter
--- NOTE | 2024-12-07 | ECG_ITS ---
Test Date: 2024-12-07 12:21:30 Measurements Intervals [place] Rate: 73 P: 62 WA: 171 QRS: -3 QRSD: 100 T: 38 QT: 387 QTc: 427 Interpretive Statements SINUS RHYTHM WITH OCCASIONAL VENTRICULAR PREMATURE COMPLEXES LOW QRS VOLTAGE IN PRECORDIAL LEADS INCOMPLETE RIGHT BUNDLE BRANCH BLOCK BASELINE ARTIFACT- II, III, AVR, AVF, V6 BORDERLINE ECG No previous ECG available for comparison Electronically Signed On 12-07-2024 12:56:24 CDT by Jorge Alberto Price D.O.
--- OUTSIDE RECORDS SUMMARY | 2024-12-07 13:58 | XMS_ITS | Encounter Summary ---
Author Organization [facility] Healthcare Address [address] [place] [address] Care Team Providers Care Zinc Etcher Name Role Phone Jass Calix MD Primary Care Provider [phone] Doreen Cote MD Unavailable [phone] Pan Abdullahi MD Unavailable [phone] Reason for Visit * Reason Onset Date Comments patient request change in pharmacy 12/07/2024 Encounter Details Date Type Department Care Team (Late st Contact Info) Description 12/07/2024 Telephone [facility] Diabetes and Endocrinology [address] [place] [phone] [place] [id number] [address] patient request change in pharmacy Social History Tobacco Use Types Packs/Day Years [...] on file 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 Gender Identity Female 05/27/2023 3:01 PM CDT Sexual Orientation Straight 05/22/2023 2: 07 PM CDT documented as of this encounter Ordered Prescriptions Prescription Sig Dispense Quantity Refills Last Filled Start Date End Date tirzepatide (MOUNJARO) 7.5 mg/0.5 mL pen injector injectionIndicatio ns:type 2 diabetes mellitus Inject 0.5 mL (7.5 mg total) under the skin every 7 days 6 mL 3 12/07/2024 12/07/2025 documented in this encounter Miscellaneous Notes * Addendum Note - Farzad Adame MA - 12/07/2024 10:53 AM CDTAddended by: FARZAD ADAME on: 12/07/2024 10:53 AM Modules accepted: Orders * Telephone Encounter - Farzad Adame MA - 12/07/2024 10:52 AM CDT [facility] * Telephone Encounter - Sandra Andre - 12/07/2024 10:15 AM CDT Incoming Call BRENDAN: 12/06/24 NOV: 03/23/24 Caller: Patient Reason: Patient called said the monujaro went to Wrong pharmacy [facility] documented in this encounter Plan of Treatment Not on file documented as of this encounter Visit Diagnoses Diagnosis Type 2 diabetes mellitus with hyperglycemia, without long-term current use of insulin (HCC) documented in this encounter Discontinued Medications Medication Sig Discontinue Reason Start Date End Da te tirzepatide (MOUNJARO) 7.5 mg/0.5 mL pen injector injectionIndications:typ e 2 diabetes mellitus Inject 0.5 mL (7.5 mg total) under the skin every 7 days Reorder 12/06/2024 12/07/2024 documented as of this encounter Care Teams Zinc Etcher Relationship Specialty Start Date End Date Jass Calix MD PCP - General Family Medicine 06/22/18 [place] [address] [facility] [address] [place] [address] Consulting Physician Endocrinology Diabetes & Metabolism 05/27/24 Pan Abdullahi MD [address] [facility] [address] [facility] [address] [place] [address] Referring Physician Nephrology 05/27/24 documented as of this encounter
--- OUTSIDE RECORDS SUMMARY | 2024-12-07 13:58 | XMS_ITS | Clinical Summary ---
Author Organization [facility] [address] [place] [id number] Care Team Providers Care Central Stores Attendant Name Role Phone Jass Calix MD Primary Care Provider [phone] Doreen Cote MD Unavailable [phone] Pan Abdullahi MD Unavailable [phone] Allergies Active Allergy Reactions Criticality Noted Date Comments Edward Inhibitors Unknown 10/03/2015 Glimepiride Hives Medium 07/09/2018 Hydrocodone Headache High 07/09/2018 Ibuprofen Unknown 10/03/2015 Nitrofurantoin Unknown 07/08/2023 Metformin Unknown 10/07/2023 Semaglutide Diarrhea,Stomach upset Low 04/10/2022 Sulfa (Sulfonamide Antibiotics) Other (See comments) Low 10/03/2015 Medications ALPRAZolam (XANAX) 1 mg tablet 9 Active PRECISION XTRA TEST strip 9 Active TRICOR 145 mg tablet 9 Active hydroCHLOROthia zide (HYDRODIURIL) 25 mg tablet 9 Active losartan (COZAAR) 100 mg tablet 9 Active TOPROL XL 100 mg 24 hr tablet 9 Active DETROL LA 2 mg 24 hr capsule 9 Active acetaminophen (TylenoL) 325 mg capsule Take 1,000 mg by mouth Active pantoprazole DR (PROTONIX) 40 mg EC tablet Take 1 tablet (40 mg total) by mouth daily 1 Active atorvastatin (LIPITOR) 80 mg tablet 3 Active fluconazole (DIFLUCAN) 150 mg tablet 4 Active tirzepatide (MOUNJARO) 7.5 mg/0.5 mL pen injector injectionIndica tions:type 2 diabetes mellitus Inject 0.5 mL (7.5 mg total) under the skin every 7 days 6 mL 3 5 12/08/19 26 Active tirzepatide (MOUNJARO) 7.5 mg/0.5 mL pen injector injectionIndica tions:type 2 diabetes mellitus Inject 0.5 mL (7.5 mg total) under the skin every 7 days 6 mL 3 5 12/07/19 Discontinu ed(Reorder ) oxyCODONE-aceta minophen (PERCOCET) 2.5-325 mg per tablet 5 12/07/19 Discontinu ed(Patient Reported) valACYclovir (VALTREX) 1 gram tablet 5 12/07/19 Discontinu ed(Patient Reported) Dexcom G7 Sensor deviceIndicatio ns:Type 2 diabetes mellitus with hyperglycemia, without long-term current use of insulin (HCC) Change sensor every 10 days. 10 each 3 5 12/07/19 Discontinu ed(Patient Reported) Dexcom G7 Rotor Pilot miscIndications :Type 2 diabetes mellitus with hyperglycemia, without long-term current use of insulin (HCC) Change sensor every 10 days. 1 each 5 12/07/19 Discontinu ed(Patient Reported) tirzepatide (MOUNJARO) 7.5 mg/0.5 mL pen injector injectionIndica tions:type 2 diabetes mellitus Inject 0.5 mL (7.5 mg total) under the skin every 7 days 6 mL 3 5 12/08/19 Discontinu ed(Reorder ) Active Problems Problem Noted Date Diagnosed Date CKD stage 3a, GFR 45-59 ml/min 10/08/2023 Assessment & Plan (10/06/2024 1:34 PM CDT): Chronic problem. Had appointment to establish care with Dr Yasmeen Abdullahi at [place] 08/03/24. Had labs & CT kidney. Has f/u appt 01/2025. Nephropathy: On EDWARD-I / ARB s : Yes. Losartan 100mg. Last MA: 07/13/24 (7). Last creat/GFR: 07/13/24 GFR=50, CR=1.17. Assessment & Plan (07/29/2024 1:47 PM CDT): Chronic problem. Has an appointment to establish care with Dr Yasmeen Abdullahi at [place] 08/03/24. Assessment & Plan (01/28/2024 1:09 PM ARMATURE COIL WINDER): Chronic problem, she has a lot of concerns with this and requests referral to nephrology, also so she can meet with renal gym supervisor. Assessment & Plan (10/08/2023 8:54 AM CDT): Add SGLT2 inhibitor Hypertension associated with diabetes 10/08/2023 Assessment & Plan (10/06/2024 1:14 PM CDT): Chronic problem. Controlled on current losartan 100mg daily, metoprolol XL 100mg daily, HCTZ 12.5mg daily Assessment & Plan (07/29/2024 1:55 PM CDT): Chronic problem. Controlled on current losartan 100mg daily, metoprolol XL 100mg daily, HCTZ 12.5mg daily Assessment & Plan (01/28/2024 1:07 PM ARMATURE COIL WINDER): Chronic problem, Controlled on losartan, HCTZ, metoprolol. No changes. Assessment & Plan (10/08/2023 8:54 AM CDT): Chronic, well controlled Continue losartan, hydrochlorothiazide and metoprolol XL Hyperlipidemia associated with type 2 diabetes agueda merino 10/08/2023 Assessment & Plan (10/06/2024 1:14 PM CDT): Chronic problem. Near goal on current Atorvastatin 80mg, Tricor 145mg daily. Last lipid panel: 07/13/24 LDL=86, UR=581. Assessment & Plan (07/29/2024 1:39 PM CDT): Chronic problem. Near goal on current Atorvastatin 80mg, Tricor 145mg daily. Last lipid panel: 07/13/24 LDL=86, QL=982. Assessment & Plan (01/28/2024 1:07 PM ARMATURE COIL WINDER): Chronic problem. On statin therapy, no changes. [...] use of insulin 07/09/2018 Assessment & Plan (10/06/2024 1:33 PM CDT): Chronic problem. A1c at goal & improved from 6.6% 07/29/24 to now 6.5%. Would like to trial Dexcom. Aware that insurance may not cover (sent to [employer]). Password given for her to share with our office. Current medications: Mounjaro 7.5 mg weekly UTD [...] skin breakdown and infection. Assessment & Plan (07/29/2024 1:44 PM CDT): [...] infection. Assessment & Plan (01/28/2024 1:09 PM ARMATURE COIL WINDER): Chronic problem, improving but sounds like she [...] Encounters Date Type Department Care Team Description 12/07/2024 Telephone [facility] Medical [facility] Diabetes and Endocrinology [address] [place] [phone] Doreen Cote MD patient request change in pharmacy 12/06/2024 10:00 AM CDT Office Visit [facility] Diabetes and Endocrinology [address] [place] [phone] Doreen Cote MD Type 2 diabetes mellitus with hyperglycemia, without long-term current use of insulin (HCC) (Primary Dx); Hypertension associated with diabetes (HCC); Hyperlipidemia associated with type 2 diabetes mellitus (HCC) 10/06/2024 1:00 PM CDT Office Visit [facility] Medical [facility] Diabetes and Endocrinology [address] [place] [phone] Pippa Salazar NP Type 2 diabetes mellitus with hyperglycemia, without long-term current use of insulin (HCC) (Primary Dx); Hypertension associated with diabetes (HCC); Hyperlipidemia associated with type 2 diabetes mellitus (HCC); CKD stage 3a, GFR 45-59 ml/min (HCC) 10/06/2024 Orders Only [facility] Diabetes and Endocrinology [address] [place] [phone] Provider, MD Eloise from Last 3 Months Medical History Medical History Date Comments Anxiety Hypertension Hyperlipidemia Fatty liver Melanoma (HCC) Type 2 diabetes mellitus Family History Medical History Relation Name Comments Coronary artery disease Father Diabetes Father Hypertension Father Lung cancer Father Diabetes Mother Hypertension Mother Relation Name Status Comments Father Mother Social History Tobacco Use Types Packs/Day Years Used Date Smoking Tobacco: Never Tobacco Cessation:Counseling Given: Not Answered Alcohol Use Standard Drinks/Week Comments Not Currently 0 (1 standard drink = 0.6 oz pur e alcohol) PHQ-2 Answer Date Recorded PHQ-2 Total Score (If total score is 3 or more points, staff should administer the PHQ-9) 4 01/28/2024 Comments No Sex and Gender Information Value Date Recorded Sex Assigned at Not on file Legal Sex Female 2:36 AM ARMATURE COIL WINDER Gender Identity Female 05/27/2023 3:01 PM CDT Sexual Orientation Straight 05/22/2023 2: 07 PM CDT Obstetrics History Last Filed Vital Signs Vital Sign Reading Time Taken Comments Blood Pressure 132/78 12/06/2024 9:52 AM CDT Pulse 77 12/06/2024 9:52 AM CDT Temperature 36.6 C (97.8 F) 07/08/2023 1:56 PM CDT Respiratory Rate 15 12/06/2024 9:52 AM CDT Oxygen Saturation 98% 07/08/2023 1:56 PM CDT Inhaled Oxygen Concentration - - Weight 86.4 kg (190 lb 6.4 oz) 12/06/2024 9:52 A M CDT Height 165.1 cm (5' 5) 12/06/2024 9:52 AM CDT Body Mass Index 31.68 12/06/2024 9:52 AM CDT Plan of Treatment Health Maintenance Due Date Last Done Comments Breast Cancer Screening-Mammogram 1952 Colon Cancer Screening-Colonoscopy 1950 Hepatitis C Screening 1950 Osteoporosis Screening-Bone Density Scan 1950 Zoster Vaccine (1 of 2) 2002 Well Visit 65+ 2017 Pneumococcal vaccine 65+ (2 of 2 - PCV) 04/20/2020 04/21/2019, 10/19/2002 Covid-19 Vaccine (5 - 2024-2 6 season) 2024 05/14/2021, 11/01/2020, 04/10/2020, Additional history exists Influenza Vaccine (#1) 2024 , 10/20/2020, 10/28/2019, Additional history exists Depression Screening 01/27/2025 01/28/2024, 10/07/19 24 Fall Risk Assessment 01/27/2025 01/28/2024, 10/07/19 24 Hemoglobin A1C 04/08/2025 10/06/2024, 06/10/2024, 04/19/2024, Additional history exists Albumin Creatinine Ratio, Urine 07/13/2025 07/13/2024, 10/07/2023, 07/15/2018 Lipid Panel 07/13/2025 07/13/2024, 10/07/2023 Foot Exam 07/29/2025 07/29/2024, 08/2 08/2023, 07/09/2018 eGFR 08/24/2025 08/24/2024, 06/0 04/2024, 10/07/2023 Dilated Eye Exam 12/30/2025 12/31/2023 DTaP/Tdap/Td Vaccine (2 - Td or Tdap) 11/28/2027 11/27/2017, 12/01/2000 Hepatitis B Screening Completed 05/05/2006 , 12/04/2005, 10/30/2005 Procedures Procedure Name Priority Date/Time Associated Diagnosis Comments POCT GLUCOSE Routine 12/06/2024 9:54 AM CDT Type 2 diabetes mellitus with hyperglycemia, without long-term current use of insulin (HCC) POCT GLUCOSE Routine 10/06/2024 1:01 PM CDT Type 2 diabetes mellitus with hyperglycemia, without long-term current use of insulin (HCC) POCT HEMOGLOBIN A1C Routine 10/06/2024 1 :01 PM CDT Type 2 diabetes mellitus with hyperglycemia, without long-term current use of insulin (HCC) HM CREATININE Routine 08/24/2024 1:15 PM CDT LIPID PANEL Routine 07/13/2024 8:18 AM CDT Type 2 diabetes mellitus with hyperglycemia, without long-term current use of insulin (HCC) Hyperlipidemia associated with type 2 diabetes mellitus (HCC) ALBUMIN CREATININE RATIO, URINE Routine 07/13/2024 8:18 AM CDT Type 2 diabetes mellitus with hyperglycemia, without long-term current use of insulin (HCC) Hypertension associated with diabetes (HCC) CKD stage 3a, GFR 45-59 ml/min (HCC) HM DIABETES EYE EXAM Routine 12/31/2023 7:35 AM ARMATURE COIL WINDER from Last 3 Months or Most Recently Relevant to Health Maintenance Results * POCT glucose (12/06/2024 9:54 AM CDT) Pathologist [facility] Glucose Blood, POC 200 Normal Fasting 70 - 100, Random <200 mg/dL Blood 12/06/2024 9:54 AM CDT Doreen Aponte MD POINT OF CARE TEST ORDERABLES Final Result * (ABNORMAL) POCT hemoglobin A1c (10/06/2024 1:01 PM CDT) Pathologist [facility] Hemoglobin A1C, POC 6.5(A) 4.0 - 5.6 % Capillary blood 10/06/2024 1 :01 PM CDT Pippa Salazar NP POINT OF CARE TEST ORDERA BLES Final Result * (ABNORMAL) POCT glucose (10/06/2024 1:01 PM CDT) Pathologist [facility] Glucose Blood, POC 197 Normal Fasting 70 - 100, Random <200 mg/dL Comment:PPG 1.5 Hrs Blood 10/06/2024 1:01 PM CDT Pippa Salazar NP POINT OF CARE TEST ORDERA BLES Final Result * (ABNORMAL) HM CREATININE (08/24/2024 1:15 PM CDT) [facility] SCRIBED Creatinine 1.11(A) 0.57 - 1.00 mg/dl [facility] SCRIBED eGFR 53(A) >=59 [facility] Historical Provider HEALTH MAINTENANCE Edited Result - Final [facility] * Albumin Creatinine Ratio, Urine (07/13/2024 8:18 AM CDT) [facility] Creatinine ur 44.9 Not Estab. mg/dL [facility] - 01 Microalbumin, ur <3.0 Not Estab. ug/mL [facility] - 01 Microalbumin/cre at ratio <7 0 - 29 mg/g creat [facility] - 01 Comment: Normal: 0 - 29 Moderately increased: 30 - 300 Severely increased: >300 Urine 07/13/2024 8:18 AM CDT 07/13/2024 Narrative [facility] - 07/14/2024 11:11 AM CDT Performed at: [facility] [id number] Marketing Support Coordinator: Hernandez Schultz PhD, Phone: [phone] us Doreen Aponte MD LAB URINE ORDERABLE S Final Result Performing Organization Address [facility] de Phone Number [id number] - 01 * Lipid panel (07/13/2024 8:18 AM CDT) [facility] Cholesterol 153 100 - 199 mg/dL [facility] - 01 Triglycerides 105 0 - 149 mg/dL [facility] - 01 HDL Cholesterol 48 >39 mg/dL [facility] - 01 VLDL 19 5 - 40 mg/dL [facility] - 01 LDL, calculated 86 0 - 99 mg/dL [facility] - 01 Blood 07/13/2024 8:18 AM CDT 07/13/2024 Narrative [facility] - 07/14/2024 1:07 AM CDT Performed at: [address] [id number] Marketing Support Coordinator: Hernandez Schultz PhD, Phone: [phone] us Doreen Aponte MD LAB BLOOD ORDERABLE S Final Result Performing Organization Address [facility] Co de Phone Number [id number] - 01 * HM DIABETES EYE EXAM (12/31/2023 7:35 AM ARMATURE COIL WINDER) us Historical Provider HEALTH MAINTENANCE Final Result from Last 3 Months or Most Recently Relevant to Health Maintenance Insurance MEDICARE FOR LIFE MEDICARE FOR LIFE Care Teams Central Stores Attendant Relationship Specialty Start Date End Date Jass Calix MD PCP - General Family Medicine 06/22/18 [place] [address] [facility] [address] [place] [address] Consulting Physician Endocrinology Diabetes & Metabolism 05/27/24 Pan Abdullahi MD [address] [facility] [address] [facility] [address] [place] [address] Referring Physician Nephrology 05/27/24
--- OUTSIDE RECORDS SUMMARY | 2024-12-07 13:58 | XMS_ITS | Clinical Summary ---
Author Organization [facility] Address [address] [place] [id number] Care Team Providers Care Group Leader Name Role Phone Olga Clayton DO Primary Care Provider [phone] Social History Tobacco Use Types Packs/Day Years [...] Scan (General) 2017 COVID-19 Vaccine (1 - 2024-2 6 season) 2024 Influenza Adult (#1) 2024 RSV Immunization or 60+ Years (1 - 1-dose 75+ series) 11/13/2027 Hepatitis A Vaccines Aged Out No long er eligible based on patient's age to complete this topic Meningococcal B Vaccine Aged Out No l onger eligible based on patient's age to complete this topic Meningococcal Vaccine Aged Out No tavon guevara eligible based on patient's age to complete this topic RSV Immunizations Under 20 Months Aged Out No longer eligible based on patient's age to complete this topic Care Teams Group Leader Relationship Specialty Start Date End Date Olga Clayton DO PCP - General 09/27/15
--- OUTSIDE RECORDS SUMMARY | 2024-12-07 13:59 | XMS_ITS | Clinical Summary ---
Author Organization [facility] Address [address] [place] [address] Care Team Providers Care Saddle And Side Wire Stitcher Name Role Phone Jass Calix MD Primary Care Provider Source Comments [facility],non-owned Affiliates and Associated Physician Practices is amultiple site organization consisting of ambulatory clinics and hospital sitesin [place], [place], [place] and [place]. This disclosure is being madepursuant to the Care Everywhere program and may not contain all information available regarding this patient. Last updated 17.[facility] Allergies Active Allergy Reactions Criticality Noted Date [...] 10/19/2020 Type 2 diabetes mellitus without complication Overview (11/10/2024): IMO 11/10/2024 Viral warts 10/19/2020 Immunizations Immunization Administration Dates [...] Comments Blood Pressure 130/78 04/19/2021 11:42 AM DETONATOR ASSEMBLER Pulse 91 04/19/2021 11:42 AM DETONATOR ASSEMBLER Temperature 35.8 C (96.5 F) 04/19/2021 11:42 AM DETONATOR ASSEMBLER Respiratory Rate 18 10/19/2020 9:05 AM CDT Oxygen Saturation 96% 04/19/2021 11:42 AM DETONATOR ASSEMBLER Inhaled Oxygen Concentration - - Weight 96.6 kg (213 lb) 04/19/2021 11:42 AM DETONATOR ASSEMBLER Height 166.4 cm (5' 5.5) 04/19/2021 11:42 AM CS T Body Mass Index 34.91 04/19/2021 11:42 AM DETONATOR ASSEMBLER Plan of Treatment Health Maintenance Due Date Last Done Comments BONE DENSITY TESTING 1950 COLOGMARGARITARD (AGES 45-75) - COLON CA SCREENING 1950 [...] EXAM WITH MONOFILAMENT 10/19/2020 DIABETES-HGB A1C 10/19/2020 DEPRESSION SCREENING 02/11/2024 DIABETES - URINE PROTEIN SCREENING 02/11/2024 COVID-19 VACCINE (1 - 2023- season) 2024 INFLUENZA VACCINE (#1) 2024 , 01/15/2006, 01/11/2005, [...] this topic Insurance MEDICARE MEDICARE Care Teams Saddle And Side Wire Stitcher Relationship Specialty Start Date End Date Jass Calix MD [address] [place] [address] PCP - General 4/17/18
== END 2024-12-07 11:55 | disposition home or self-care (01) ==
LOC: ANHCARD 12:00
PROVIDERS: PCP Family Medicine; Visit Provider Nurse Practitioner Family
DX: R00.2 Palpitations (principal); I49.9 Cardiac arrhythmia, unspecified; I45.10 Unspecified right bundle-branch block; R94.31 Abnormal electrocardiogram [ECG] [EKG]
CPT/HCPCS: 93005

== ENCOUNTER 2024-12-29 11:57 | Outpatient (CLI) | payer MEDICARE, OTHER, SELFPAY ==
--- NOTE | ~2024-12-29 | XR_ITS ---
XR lumbar spine 2-3V Indication: PT STATES LOW BACK PAIN X 8 MTHS AGO Comparison: None Findings: Grade 1 anterolisthesis L5 on S1, no acute fracture. Severe loss of disc height throughout. Soft tissues unremarkable Impression: No acute abnormality. Reviewed, dictated and finalized at location P. IFIED PHLEBOTOMY TECHNICIAN Impression: No acute abnormality.
== END 2024-12-29 11:58 | disposition home or self-care (01) ==
PROVIDERS: PCP Family Medicine; Visit Provider Nurse Practitioner Family
DX: M51.26 Other intervertebral disc displacement, lumbar region (principal)
CPT/HCPCS: 72100

== ENCOUNTER 2025-02-04 00:06 | Day surgery (SDC) | payer MEDICARE, OTHER, SELFPAY ==
[2025-01-12 13:44] VITALS: BMI 31.4
--- OUTSIDE RECORDS SUMMARY | 2025-02-04 00:09 | XMS_ITS | Continuity of Care Document ---
Author Name [facility] Organization [facility] Care Team Providers Care Locksmith Helper Name Role Phone [facility] Unavailable Unavailable Problems Combined list of problems from Department of Defense and Veterans Affairs facilities. It does not include entries that were removed or entered in error. Problem Status Onset Date Problem Type Date of Resolution Comments Source cataract senile both eyes Active Condition DoD astigmatism Active Condition DoD headache Inactive Condition DoD numbness (hypesthesia) Active Condition ASSESSMENT: Patient presents with signs/symptoms consistent with right greater than left carpal tunnel syndrome.Patient is a good candidate for rehabilitation. Readiness to learn has been assessed. There are no barriers to treatment. There are no special needs.Goals: (1 week) 1, Patient will independently comply with orthotic wear/care, HEP to prevent increase in symptoms. -- GOAL MET. DoD dermatochalasis Active Condition DoD presbyopia Active Condition DoD refractive error - myopia Active Condition DoD diabetes mellitus Active Condition DoD visit for: issue repeat prescription for medication Inactive Condition DoD Administrative Evaluation Services Inactive Condition DoD fatty liver Active Condition DoD joint pain, localized in the knee Active Condition DoD warts Active Condition DoD hyperlipidemia Active Condition DoD essential hypertension benign Active Condition DoD Abdomen Mass (___ cm) Active Condition DoD esophageal reflux Active Condition DoD diabetes mellitus type 2 - uncomplicated, controlled Active Condition DoD visit for: issue repeat prescription Inactive Condition DoD irritable bowel syndrome Active Condition DoD allergic rhinitis Active Condition DoD essential hypertension Active Condition DoD X-Ray Inactive Condition DoD diabetes mellitus type 2 Active Condition 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 It does not include entries that were removed or entered in error. Substance Category Reaction Severity Reaction type Status Date Reported Comments Source [facility] {Cla } Drug allergy (disorder) Unknown active 10/03/[address] [place] [address] [facility] MOTRIN (IBUPROFEN) Drug allergy (disorder) Unknown active 10/03/[address] [place] [address] [facility]) OTHER Drug allergy (disorder) Unknown active 05/08/[address] [place] [address] [facility]) OTHER Drug allergy (disorder) active 08/03/[address] [place] [address] [facility] ([facility]) Immunizations Combined list of available immunizations from the Department of Defense and Veterans Affairs facilities. Immunization Series Date Given Administered By Site Reaction Lot Number CVX Code Drug Technical Maintenance Specialist Status Comments Source COVID-19, mRNA, LNP-S, PF, 30 mcg/0.3 mL dose, adam-sucrose 2021 [facility], () Not Given COVID-19, mRNA, LNP-S, PF, 30 mcg/0.3 mL dose, adam-sucr ose [facility] pneumococcal polysaccharid e PPV23 2019 [facility], () Not Given pneumococ gagandeep polysacch aride PPV23 DoD influenza, injectable, quadrivalent, preservative free 2018 [facility], () Not Given influenza , injectabl e, quadrival ent, preservat reji free DoD Influenza, seasonal, injectable 2016 [facility], () Not Given Influenza , seasonal, injectabl e DoD hepatitis B vaccine, adult dosage 3 2006 Unknown, Provider [id number] 6BA 43 [employer] ([facility]) complet ed hepatitis B vaccine, adult dosage DoD influenza virus vaccine, split virus (incl. purified surface antigen)-reti red CODE 1 2005 Unknown, Provider [id number] 15 [employer] ([facility]) complet ed influenza virus vaccine, split virus (incl. purified surface antigen)- retired CODE DoD hepatitis B vaccine, adult dosage 2 2005 Unknown, Provider [id number] 9ba 43 [employer] ([facility]) complet ed hepatitis B vaccine, adult dosage DoD hepatitis B vaccine, adult dosage 1 2005 Unknown, Provider [id number] 9BA 43 [employer] ([facility]) complet ed hepatitis B vaccine, adult dosage DoD hepatitis A vaccine, adult dosage 2 2005 Unknown, Provider [id number] 9AA 52 [employer] ([facility]) complet ed hepatitis A vaccine, adult dosage DoD hepatitis A vaccine, adult dosage 1 2005 Unknown, Provider [id number] 7aa 52 [employer] ([facility]) complet ed hepatitis A vaccine, adult dosage DoD influenza virus vaccine, split virus (incl. purified surface antigen)-reti red CODE 1 2004 Unknown, Provider [id number] 15 Sanofi Pasteur ([facility]) complet ed influenza virus vaccine, split virus (incl. purified surface antigen)- retired CODE DoD influenza virus vaccine, split virus (incl. purified surface antigen)-reti red CODE 1 2003 Unknown, Provider [id number] 15 Sanofi Pasteur ([facility]) complet ed influenza virus vaccine, split virus (incl. purified surface antigen)- retired CODE DoD influenza virus vaccine, whole virus 1 2002 Unknown, Provider [id number] 16 Sanofi Pasteur ([facility]) complet ed influenza virus vaccine, whole virus DoD pneumococcal polysaccharid e vaccine, 23 valent 1 2002 Unknown, Provider [id number] Merck ([facility]) complet ed pneumococ gagandeep polysacch aride vaccine, 23 valent DoD influenza virus vaccine, whole virus 1 2000 Unknown, Provider [id number] 16 Sanofi Pasteur ([facility]) complet ed influenza virus vaccine, whole virus DoD tetanus and diphtheria toxoids, adsorbed, preservative free, for adult use (2 Lf of tetanus toxoid and 2 Lf of diphtheria toxoid) 1 2000 Unknown, Provider [id number] 09 Sanofi Pasteur ([facility]) complet ed tetanus and diphtheri a toxoids, adsorbed, preservat reji free, for adult use (2 Lf of tetanus toxoid and 2 Lf of diphtheri a toxoid) DoD Encounters Combined list of: 1) Encounters from Department of Veterans Affairs facilities going backup to the last 18 months, not all VA inpatient encounters are included; 2) Encounters from the Department of Defense facilities going backup to 280 months. Location Location Details Encounter Type Encounter Number Reason For Visit Attending Provider ADM Date DC Date Status Disposition Source [facility] TELE CONSULT [id number] pt called [phone]. needs a mammo ordered for next month. PCM-She CINTHIA Meza 05/29 [employer]S cott Interna l Medicin e Tm) [facility])([facility] Internal Medicine ) TELE CONSULT [id number] New Rx for Atenolo l 50mg. CINTHIA INMAN A 05/[address] [place] [address])(S cott Interna l Medicin e Tm) [address] [place] [address])([facility] Internal Medicine ) TELE CONSULT [id number] MED REFILL TREVIN JARRETT 07/[address] [place] [address])(S cott Interna l Medicin e Tm) [address] [place] [address])([facility] ) OUTPATIENT [id number] right shoulde r CALVIN ALEX 07/31 Released w/o Limitations [address] [place] [address])(S cott Interna l Medicin e Tm) [address] [place] [address])([facility] ) TELE CONSULT [id number] blood work SARAI MATA 09/[address] [place] [address])(S cott Interna l Medicin e Tm) [address] [place] [address])([facility] ) OUTPATIENT [id number] f/u on dm CINTHIA INMAN A 09/28 Released w/o Limitations [address] [place] [address])(S cott Interna l Medicin e Tm) [address] [place] [address])([facility] ) TELE CONSULT [id number] med refills SARAI MATA 02/[address] [place] [address])(S cott Interna l Medicin e Tm) [address] [place] [address])([facility] ) OUTPATIENT [id number] swollen glands painful to eat RONNIE JIMENEZ 02/22 Released w/o Limitations [address] [place] [address])(S cott Interna l Medicin e Tm) [address] [place] [address])([facility] ) OUTPATIENT [id number] Diabete s follow up CINTHIA INMAN A 04/08 Released w/o Limitations [address] [place] [address])(S cott Interna l Medicin e Tm) [address] [place] [address] [facility])([facility] Internal Medicine ) TELE CONSULT [id number] US results CINTHIA INMAN A 04/[address] [place] [address] Group [facility])(S cott Interna l Medicin e Tm) [address] [place] [address] [facility])(Pod iatry) OUTPATIENT [id number] diabete GUIDO Dover 04/24 Released w/o Limitations [address] [place] [address] Group [facility])(P odiatry ) [address] [place] [address])(Opt ometry) OUTPATIENT [id number] diabeti c eye exam YOHAN BERMAN 05/06 Released w/o Limitations [address] [place] [address] [facility])(O ptometr y) [address] [place] [address] [facility])([facility] Internal Medicine ) OUTPATIENT [id number] ck up RONNIE JIMENEZ 06/18 Released w/o Limitations [address] [place] [address] [facility])(S cott Interna l Medicin e Tm) [address] [place] [address])([facility] Internal Medicine ) TELE CONSULT [id number] medicat ion refill RONNIE JIMENEZ 10/[address] [place] [address] [facility])(S cott Interna l Medicin e Tm) [address] [place] [address])([facility] Internal Medicine ) OUTPATIENT [id number] F/U DM RONNIE JIMENEZ 10/30 Released w/o Limitations [address] [place] [address] [facility])(S cott Interna l Medicin e Tm) [address] [place] [address])([facility] Internal Medicine ) TELE CONSULT [id number] CT abd results RONNIE JIMENEZ 11/[address] [place] [address] [facility])(S cott Interna l Medicin e Tm) [address] [place] [address] [facility])([facility] Internal Medicine ) OUTPATIENT [id number] warts on hands and knee problem RONNIE Rincon 03/05 Released w/o Limitations [address] [place] [address] [facility])(S cott Interna l Medicin e Tm) [address] [place] [address] [facility])([facility] Internal Medicine ) TELE CONSULT [id number] lab results RONNIE JIMENEZ 03/[address] [place] [address] [facility] ([facility])(S cott Interna l Medicin e Tm) [address] [place] [address] [facility] ) TELE CONSULT [id number] Med refill RONNIE JIMENEZ 04/[address] [place] [address] [facility] ([facility])(S cott Interna l Medicin e Tm) [address] [place] [address] [facility] ([facility])(Opt ometry) OUTPATIENT [id number] routine eye exam Pt old appt @ 1140 w/doc JOHN OROZCO YEMI Jacob 04/16 Released w/o Limitations [address] [place] [address] [facility] ([facility])(O ptometr y) [address] [place] [address] [facility] ([facility])(Opt ometry) OUTPATIENT [id number] diabeti c dilated eye exam MAYA SEVERINO W 04/28 Released w/o Limitations [address] [place] [address] [facility] ([facility])(O ptometr y) [address] [place] [address] [facility] ([facility])(Occ upational Therapy) OUTPATIENT [id number] Pas entered the order YONI DAVIS 04/29 Released w/o Limitations [address] [place] [address] [facility] ([facility])(O ccupati onal Therapy ) [address] [place] [address] [facility]Opt ometry) OUTPATIENT [id number] diabeti c eye exam LUIS DANIEL BERMAN W 05/27 Released w/o Limitations [address] [place] [address] [facility] ([facility])(O ptometr y) [address] [place] [address] [facility] ([facility])(Opt ometry) OUTPATIENT [id number] diabeti c eye exam LUIS DANIEL BERMAN W 06/14 Released w/o Limitations [address] [place] [address] [facility] ([facility])(O ptometr y) [address] [place] [address] [facility] ([facility])(Kiln Setter ecology) TELE CONSULT [id number] Notes Entered by: ADONIS RIVERA 25 Jul 2015 0922 ------- ------- ------- ------- -- Appt against KASSI Damon 07/[address] [place] [address] [facility] ([facility])(G ynecolo gy) [address] [place] [address] [facility])(Kiln Setter ecology) OUTPATIENT [id number] Prolaps e bladder [id number] LOLITA ZAMBRANO 08/02 Released w/o Limitations [address] [place] [address] [facility])(G ynecolo gy) [address] [place] [address] [facility])(Kiln Setter ecology) OUTPATIENT [id number] pessary fitting - [phone] LOLITA ZAMBRANO 09/18 Released w/o Limitations [address] [place] [address] [facility])(G ynecolo gy) [address] [place] [address] [facility])(Kiln Setter ecology) OUTPATIENT [id number] pessary followu p (7085) - [phone] LOLITA ZAMBRANO Nathalia 10/02 Released w/o Limitations [address] [place] [address] [facility])(G ynecolo gy) [address] [place] [address] [facility])(Kiln Setter ecology) TELE CONSULT [id number] Notes Entered by: MABLE FIGUEROA 03 Oct 2015 1115 ------- ------- ------- ------- -- Network Results -PHYSIC AL THERAPY 09/27/15 SDG LOLITA ZAMBRANO Nathalia 10/[address] [place] [address])(G ynecolo gy) [address] [place] [address])(Ob/ Kiln Setter) TELE CONSULT [id number] Notes Entered by: YONAS IVAN 03 Oct 2015 1307 ------- ------- ------- ------- -- Network results Physica l Therapy 016 DMJ LOLITA ZAMBRANO Nathalia 10/[address] [place] [address])(O b/Kiln Setter) Procedures Combined list of: 1) Procedures from Department of Veterans Affairs facilities going back up to thelast 18 months, not all VA non-surgical procedures are included; 2) All procedures from the Department of Defense facilities. Procedure Procedure Type Code Date Perfomer Comments [facility] e FITTING AND INSERTION OF PESSARY OR OTHER INTRAVAGINAL SUPPORT DEVICE 6 DoD FITTING AND INSERTION OF PESSARY OR OTHER INTRAVAGINAL SUPPORT DEVICE 6 DoD TELE ASSESS & MGT SRV PROV QUAL NONPHYS HLTH CARE PRO TO EST PAT,PARENT,GUARD NOT ORIG REL ASSESS & MGT SRV PROV W/IN PREV 7 DAYS NOR LEAD ASSESS & MGT SRV/PX W/IN NXT 24 HR/SOON APT;5-10 MIN MED DIS 6 DoD DIABETIC INDICATOR; RETINAL EYE EXAM, DILATED, BILATERAL 0 DoD DETERMINATION OF REFRACTIVE STATE 9 DoD ORTHOTIC(S) MANAGEMENT AND TRAINING (INCLUDING ASSESSMENT AND FITTING WHEN NOT OTHERWISE REPORTED),UPPER EXTREMITY(IES),LOWER EXTREMITY(IES) AND/OR TRUNK,INITIAL ORTHOTIC(S) ENCOUNTER,EACH 15 MINUTES 8 DoD DETERMINATION OF REFRACTIVE STATE 8 DoD DETERMINATION OF REFRACTIVE STATE 7 DoD DESTRUCTION (EG, LASER SURGERY, ELECTROSURGERY, CRYOSURGERY, CHEMOSURGERY, SURGICAL CURETTEMENT), PREMALIGNANT LESIONS (EG, ACTINIC KERATOSES); FIRST LESION 7 DoD IMMUNIZATION ADMINISTRATION (INCLUDES PERCUTANEOUS, INTRADERMAL, SUBCUTANEOUS, OR INTRAMUSCULAR INJECTIONS); 1 VACCINE (SINGLE OR COMBINATION VACCINE/TOXOID) 6 [facility] OPHTHALMOLOGICAL SERVICES: MEDICAL EXAMINATION AND EVALUATION WITH INITIATION OF DIAGNOSTIC AND TREATMENT PROGRAM; INTERMEDIATE, NEW PATIENT 6 DoD INCISION AND DRAINAGE, COMPLEX, POSTOPERATIVE WOUND INFECTION 5 DoD INCISION AND DRAINAGE, COMPLEX, POSTOPERATIVE WOUND INFECTION 5 [facility] INCISION AND DRAINAGE, COMPLEX, POSTOPERATIVE WOUND INFECTION 5 [facility] INCISION AND DRAINAGE, COMPLEX, POSTOPERATIVE WOUND INFECTION 5 [facility] UNLISTED SPECIAL SERVICE, PROCEDURE OR REPORT 5 DoD SCREENING PAPANICOLAOU SMEAR; OBTAINING, PREPARING AND CONVEYANCE OF CERVICAL OR VAGINAL SMEAR TO LABORATORY 4 DoD PNEUMOCOCCAL POLYSACCHARIDE VACCINE, 23-VALENT (PPSV23), ADULT OR IMMUNOSUPPRESSED PATIENT DOSAGE, WHEN ADMINISTERED TO INDIVIDUALS 2 YEARS OR OLDER, FOR SUBCUTANEOUS OR INTRAMUSCULAR USE 3 DoD LAPAROSCOPIC CHOLECYSTECTOMY 6 [facility] INTRAOPERATIVE CHOLANGIOGRAM 6 [facility] Gynecologic Services Insertion of Pe eliel Gynecologic Services Insertion of Pessary 20282 6 LOLITA ZAMBRANO DoD Gynecologic Services Insertion Of Pe eliel Ring With Diaphragm Gynecologic Services Insertion Of Pessary Ring With Diaphragm 74299 6 ERMIS, LOLITA B [facility] Non-Physician Phone Call To Patient/Provider Brief (5-10min) Non-Physician Phone Call To Patient/Provider Brief (5-10min) 80767 6 UPTERGRKASSI CISNEROS Diabetic indicator; retinal eye exam, dilated, bilateral Diabetic indicator; retinal eye exam, dilated, bilateral S3000 0 LUIS DANIEL BERMAN Determination Of Refractive State Determination Of Refractive State 43534 0 LUIS DANIEL BERMAN Visual Aponte Test Intermediate Examination Visual Aponte Test Intermediate Examination [id number] 0 LUIS DANIEL BERMAN Ophthalmological Prior Patient Start Comprehensive Care Ophthalmological Prior Patient Start Comprehensive Care 0 LUIS DANIEL BERMAN Diabetic indicator; retinal eye exam, dilated, bilateral Diabetic indicator; retinal eye exam, dilated, bilateral S3000 9 LUIS DANIEL BERMAN Determination Of Refractive State Determination Of Refractive State 49101 9 LUIS DANIEL BERMAN Visual Aponte Test Intermediate Examination Visual Aponte Test Intermediate Examination 30330 9 LUIS DANIEL BERMAN Ophthalmological Prior Patient Start Comprehensive Care Ophthalmological Prior Patient Start Comprehensive Care 9 LUIS DANIEL BERMAN Wearing Apparel Assembler Educ Orthotics Training Each Additional 15 Minutes 8 YONI ADVIS Physical Therapy Education Orthotics Training Initial 15 Min 8 YONI DAVIS Splinting Wrist Static Neutral Position Splinting Wrist Static Neutral Position 80264 8 YONI DAVIS Occupational Therapy Evaluation Occupational Therapy Evaluation 64684 8 YONI DAVIS Determination Of Refractive State Determination Of Refractive State 53124 8 MAYA SEVERINO Visual Aponte Test Intermediate Examination Visual Aponte Test Intermediate Examination 55308 8 MAYA SEVERINO Ophthalmological Prior Patient Start Comprehensive Care Ophthalmological Prior Patient Start Comprehensive Care 56231 8 MAYA SEVERINO Determination Of Refractive State Determination Of Refractive State 84493 7 YEMI OROZCO Ophthalmological Prior Patient Start Comprehensive Care Ophthalmological Prior Patient Start Comprehensive Care 96052 7 YEMI OROZCO [facility] Visual Aponte Test Intermediate Examination Visual Aponte Test Intermediate Examination 19377 7 YEMI OROZCO [facility] Destruction Of Benign Lesion By Any Method One Lesion 7 RONNIE JIMENEZ [facility] Immunization Administration By Injection, One Vaccine Immunization Administration By Injection, One Vaccine 97202 6 RONNIE JIMENEZ [facility] Ophthalmological New Patient Start Intermediate Level Care Ophthalmological New Patient Start Intermediate Level Care 24660 6 YOHAN BERMAN [facility] Social History Combined list of available smoking, tobacco, and other social history from Department of Defense and Veterans Affairs facilities. Social History Type Response Date Comment Sour e This section is an empty social history section. DoD
--- OUTSIDE RECORDS SUMMARY | 2025-02-04 00:10 | XMS_ITS | Clinical Summary ---
Author Organization [facility] Physician Office Building [address] [place] [id number] Care Team Providers Care De Ionizer Operator Name Role Phone Jass Calix MD Primary Care Provider [phone] Doreen Cote MD Unavailable [phone] Pan Abdullahi MD Unavailable [phone] Allergies Active Allergy Reactions Criticality Noted Date [...] fluconazole (DIFLUCAN) 150 mg tablet 12/26/2023 Active tirzepatide (MOUNJARO) 7.5 mg/0.5 mL pen injector injectionIndicat ions:type 2 diabetes mellitus Inject 0.5 mL (7.5 mg total) under the skin every 7 days 6 mL 3 12/07/2024 Active Active Problems Problem Noted Date Diagnosed Date CKD stage 3a, GFR 45-59 ml/min 10/08/2023 Assessment & Plan (10/06/2024 1:34 PM CDT): Chronic problem. Had appointment to establish care with Dr Yasmeen Abdullahi at [place] 08/03/24. Had labs & CT kidney. Has f/u appt 01/2025. Nephropathy: On EDWARD-I / ARB s : Yes. Losartan 100mg. Last MA: 07/13/24 (7). Last creat/GFR: 07/13/24 GFR=50, CR=1.17. Assessment & Plan (07/29/2024 1:47 PM CDT): Chronic problem. Has an appointment to establish care with Dr Yasmeen Abdullahi at [facility] 08/03/24. Assessment & Plan (01/28/2024 1:09 PM PSYCHIATRY TEACHER): Chronic problem, she has a lot of concerns with this and requests referral to nephrology, also so she can meet with renal relocation manager. Assessment & Plan (10/08/2023 8:54 AM CDT): [...] daily Assessment & Plan (01/28/2024 1:07 PM PSYCHIATRY TEACHER): Chronic problem, Controlled on losartan, HCTZ, metoprolol. No changes. Assessment & Plan (10/08/2023 8:54 AM CDT): Chronic, well controlled Continue losartan, hydrochlorothiazide and metoprolol XL Hyperlipidemia associated with type 2 diabetes agueda merino 10/08/2023 Assessment & Plan (10/06/2024 1:14 PM CDT): Chronic problem. Near goal on current Atorvastatin 80mg, Tricor 145mg daily. Last lipid panel: 07/13/24 LDL=86, HE=274. Assessment & Plan (07/29/2024 1:39 PM CDT): Chronic problem. Near goal on current Atorvastatin 80mg, Tricor 145mg daily. Last lipid panel: 07/13/24 LDL=86, ZC=339. Assessment & Plan (01/28/2024 1:07 PM PSYCHIATRY TEACHER): Chronic problem. On statin therapy, no changes. [...] that insurance may not cover (sent to [facility]). Password given for her to share with [...] infection. Assessment & Plan (01/28/2024 1:09 PM PSYCHIATRY TEACHER): Chronic problem, improving but sounds like she [...] Type Department Care Team Description 12/07/2024 Telephone [facility] Diabetes [facility] Endocrinology [address] [place] [id number] Doreen Cote MD patient request change in pharmacy 12/06/2024 10:00 AM CDT Office Visit [facility] Diabetes [facility] Endocrinology [address] [place] [phone] Doreen Cote MD Type 2 diabetes mellitus with hyperglycemia, without long-term current use of insulin (HCC) (Primary Dx); Hypertension associated with diabetes (HCC); Hyperlipidemia associated with type 2 diabetes mellitus (HCC) from Last 3 Months Medical History Medical [...] on file Legal Sex Female 2:36 AM PSYCHIATRY TEACHER Gender Identity Female 05/27/2023 3:01 PM CDT Sexual Orientation Straight 05/22/2023 2: 07 PM CDT Last Filed Vital Signs Vital Sign Reading [...] 01/28/2024, 10/07/19 24 Hemoglobin A1C 04/08/2025 10/06/2024, 06/1 10/2024, 04/19/2024, Additional history exists Albumin Creatinine Ratio, [...] (HCC) CKD stage 3a, GFR 45-59 ml/min ([facility]) HM DIABETES EYE EXAM Routine 12/31/2023 7:35 AM PSYCHIATRY TEACHER from Last 3 Months or Most Recently Relevant to Health Maintenance Results * POCT glucose (12/06/2024 9:54 AM CDT) [facility] Glucose Blood, POC 200 Normal Fasting 70 - 100, Random <200 mg/dL Blood 12/06/2024 9:54 AM CDT us Doreen Aponte MD POINT OF CARE TEST ORDERABLES Final Result * (ABNORMAL) POCT hemoglobin A1c (10/06/2024 1:01 PM CDT) Hemoglobin A1C, POC 6.5(A) 4.0 - 5.6 % Capillary blood 10/06/2024 1 :01 PM CDT us Pippa Salazar NP POINT OF CARE TEST ORDERA BLES Final Result * (ABNORMAL) HM CREATININE (08/24/2024 1:15 PM CDT) SCRIBED Creatinine 1.11(A) 0.57 - 1.00 mg/dl [facility] SCRIBED eGFR 53(A) >=59 [facility] us Historical Provider HEALTH MAINTENANCE Edited Result - [...] - 07/14/2024 11:11 AM CDT Performed at: [facility] [id number] Nursing Home Social Worker: Hernandez Schultz PhD, Phone: [phone] us Doreen Aponte MD LAB URINE ORDERABLE S Final Result Performing Organization Address [facility] Co de Phone Number [facility] - [...] - 07/14/2024 1:07 AM CDT Performed at: - [address] [id number] Nursing Home Social Worker: Hernandez Schultz PhD, Phone: [phone] us Jayy Fadi Aponte MD LAB BLOOD ORDERABLE S Final Result Performing Organization Address [facility] Co de Phone Number [facility] - 01 * DIABETES EYE EXAM (12/31/2023 7:35 AM PSYCHIATRY TEACHER) us Historical Provider HEALTH MAINTENANCE Final Result from Last 3 Months or Most Recently Relevant to Health Maintenance Insurance MEDICARE [employer] MEDICARE FOR LIFE Care Teams De Ionizer Operator Relationship Specialty Start Date End Date Jass Calix MD PCP - General Family Medicine 06/22/18 [place] [id number] [address] Consulting Physician Endocrinology Diabetes & Metabolism 05/27/24 Pan Abdullahi MD [address] [place] [address] Referring Physician Nephrology 05/27/24
--- OUTSIDE RECORDS SUMMARY | 2025-02-04 00:11 | XMS_ITS | Clinical Summary ---
Author Organization [facility] Address [address] [place] [address] Care Team Providers Care Glass Laminating Operator Name Role Phone Jass Calix MD Primary Care Provider [phone] Source Comments [facility],non-owned Affiliates and Associated Physician Practices is amultiple site organization consisting of ambulatory clinics and hospital sitesin [place], [place], [place] and [place]. This disclosure is being madepursuant to the Care Everywhere program and may not contain all information available regarding this patient. Last updated 17.[facility] [employer] Allergies Active Allergy Reactions Criticality Noted Date [...] Comments Blood Pressure 130/78 04/19/2021 11:42 AM STRUCTURES ENGINEER Pulse 91 04/19/2021 11:42 AM STRUCTURES ENGINEER Temperature 35.8 C (96.5 F) 04/19/2021 11:42 AM STRUCTURES ENGINEER Respiratory Rate 18 10/19/2020 9:05 AM CDT Oxygen Saturation 96% 04/19/2021 11:42 AM STRUCTURES ENGINEER Inhaled Oxygen Concentration - - Weight 96.6 kg (213 lb) 04/19/2021 11:42 AM STRUCTURES ENGINEER Height 166.4 cm (5' 5.5) 04/19/2021 11:42 AM CS T Body Mass Index 34.91 04/19/2021 11:42 AM STRUCTURES ENGINEER Plan of Treatment Health Maintenance Due Date [...] PROTEIN SCREENING 02/11/2024 COVID-19 VACCINE (1 - 2024- season) 2024 INFLUENZA VACCINE (#1) 2024 , [...] this topic Insurance MEDICARE MEDICARE Care Teams Glass Laminating Operator Relationship Specialty Start Date End Date Jass Calix MD [address] [place] [address] PCP - General 4/17/18
--- OUTSIDE RECORDS SUMMARY | 2025-02-04 00:11 | XMS_ITS | Clinical Summary ---
Author Organization [facility] Address [address] [place] [id number] Care Team Providers Care Land Resource Specialist Name Role Phone Olga Clayton DO Primary Care Provider [phone] Social History Tobacco Use Types Packs/Day Years [...] age to complete this topic Care Teams Land Resource Specialist Relationship Specialty Start Date End Date Olga Clayton DO PCP - General 09/27/15
[2025-02-04 08:18] VITALS: BP 149/71; PULSE 93; RESP 18; TEMP 36.2; O2SAT 100
[2025-02-04] MEDS: LACTATED RINGERS 1,000 ML 150 ML IV CONT (08:31)
--- NOTE | 2025-02-04 08:34 | PM.HPGS ---
History of Present Illness History of Present Illness Consent: Risks, benefits, and alternatives have been discussed and questions answered. Patient agrees to proceed with procedure. Chief complaint: Screening/Positive Cologuard Narrative: Julianne Herring is a 74 year old female This is a 75-year-old female who had a positive Cologuard test. Patient has no GI symptoms. Denies any nausea vomiting. No abdominal pain. No active bleeding. No hematemesis. Her appetite has been stable and there is no documentation about any weight loss. Review of Systems Review of Systems: Eleven review of symptoms are negative except the ones mentioned in the H&P. [facility] Past Medical History Medical History Arthritis Psoriasis Diarrhea Wears glasses Vertigo Claustrophobia High cholesterol Hypertension GERD (gastroesophageal reflux disease) Anxiety Anemia Diabetes History of bronchitis History of blood transfusion Surgical History Surgical History S/P hysterectomy S/P surgical amputation of finger S/P bladder repair S/P cholecystectomy S/P knee surgery History of salpingo-oophorectomy H/O hernia repair lap rep of incarcerated incisional hernia with symbotex mesh, Da Curry 11/25/16 Family History Family History Father Family history of lung cancer Other Diabetes mellitus Family history of allergic disorder Family history of tuberculosis Hypertension Social History Social History Smoking status: Former smoker Tobacco type: cigarettes Alcohol intake: never Substance use: never Substance use type: does not use Living arrangements: with family Occupation/Education: retired Gender identity (if verbalized by the patient): Female Spiritual care concerns: No Meds Home Medications and Allergies Home Medications ?Medication ?Instructions ?Recorded ?Confirmed ?Type alprazolam 2 mg tablet (Xanax) 2 mg PO DAILY 04/15/19 02/04/25 History atorvastatin 40 mg tablet 40 mg PO DAILY 04/15/19 02/04/25 History fenofibrate nanocrystallized 145 145 mg PO DAILY 04/15/19 02/04/25 History mg tablet (Tricor) hydrochlorothiazide 25 mg tablet 25 mg PO DAILY 04/15/19 02/04/25 History losartan 100 mg tablet 100 mg PO DAILY 04/15/19 02/04/25 History metoprolol succinate 100 mg 100 mg PO DAILY 04/15/19 02/04/25 History tablet,extended release 24 hr (Toprol XL) pantoprazole 40 mg tablet,delayed 40 mg PO QAM 04/15/19 02/04/25 History release (Protonix) tolterodine 2 mg tablet (Detrol) 2 mg PO Q12H 04/15/19 02/04/25 History cholecalciferol (vitamin D3) 25 25 mcg PO DAILY 08/03/24 02/04/25 History mcg (1,000 unit) capsule cyanocobalamin (vitamin B-12) 1,000 mcg PO DAILY 08/03/24 02/04/25 History 1,000 mcg capsule ferrous sulfate 325 mg (65 mg 325 mg PO DAILY 08/03/24 02/04/25 History iron) tablet (Feosol) tirzepatide 7.5 mg/0.5 mL 7.5 mg subcut WEEKLY 08/03/24 02/04/25 History subcutaneous pen injector (Mounjaro) acetaminophen 500 mg tablet 500 mg PO Q6H PRN pain 01/28/25 02/04/25 History (Tylenol Extra Strength) Allergies Allergy/AdvReac Type Severity Reaction Status Date / Time amlodipine Allergy Intermediate heart rate Verified 02/04/25 08:15 drops CELNEA Inhibitors Allergy Unknown Unknown Verified 02/04/25 08:15 acetaminophen (From Vicodin) Allergy Unknown Itching Verified 02/04/25 08:15 glimepiride Allergy Unknown Unknown Verified 02/04/25 08:15 hydrocodone Allergy Unknown NAUSEA AND Verified 02/04/25 08:15 VOMITING AND HIVES ibuprofen Allergy Unknown Itching Verified 02/04/25 08:15 metformin Allergy Unknown Diarrhea Verified 02/04/25 08:15 nitrofurantoin Allergy Unknown Nausea Verified 02/04/25 08:15 Vital Signs Vital Signs - 24 hr 02/04/25 08:18 Temperature 97.1 F L Pulse Rate 93 Respiratory Rate 18 Blood Pressure 149/71 H Pulse Oximetry 100 Oxygen Delivery Room Air Assessment and Plan Assessment and plan (1) Positive colorectal cancer screening using Cologuard test: Code(s): R19.5 - Other fecal abnormalities Status: Acute Plan 74-year-old female with a positive Cologuard test. Patient will have colonoscopy. Indications, benefits, and complications of the procedure were discussed in details with her. She appears to understand the procedure and agreed to proceed.
--- NOTE | 2025-02-04 08:57 | WPDANESEPPF ---
Anes - Initial Pre Proc Eval Procedure: Operation Date: 02/04/25 09:30 Proposed Procedures p Screening Colonoscopy - Sourav Willson MD Date/Time: 02/04/25 08:57 Surgeon: Sourav Willson MD Pre Op Diagnosis: Screening/Positive Cologuard Patient Data Age: 74 Gender: F Height: 1.65 m Weight: 85.8 kg Last Vital Signs Temp 36.2 C L 02/04/25 08:18 Pulse 93 02/04/25 08:18 Resp 18 02/04/25 08:18 BP 149/71 H 02/04/25 08:18 Pulse Ox 100 02/04/25 08:18 O2 Del Method Room Air 02/04/25 08:18 Allergies Allergy/AdvReac Type Severity Reaction Status Date / Time amlodipine Allergy Intermediate heart rate Verified 02/04/25 08:15 drops CELENA Inhibitors Allergy Unknown Unknown Verified 02/04/25 08:15 acetaminophen (From Vicodin) Allergy Unknown Itching Verified 02/04/25 08:15 glimepiride Allergy Unknown Unknown Verified 02/04/25 08:15 hydrocodone Allergy Unknown NAUSEA AND Verified 02/04/25 08:15 VOMITING AND HIVES ibuprofen Allergy Unknown Itching Verified 02/04/25 08:15 metformin Allergy Unknown Diarrhea Verified 02/04/25 08:15 nitrofurantoin Allergy Unknown Nausea Verified 02/04/25 08:15 Home Medications ?Medication ?Instructions ?Recorded ?Confirmed ?Type alprazolam 2 mg tablet (Xanax) 2 mg PO DAILY 04/15/19 02/04/25 History atorvastatin 40 mg tablet 40 mg PO DAILY 04/15/19 02/04/25 History fenofibrate nanocrystallized 145 145 mg PO DAILY 04/15/19 02/04/25 History mg tablet (Tricor) hydrochlorothiazide 25 mg tablet 25 mg PO DAILY 04/15/19 02/04/25 History losartan 100 mg tablet 100 mg PO DAILY 04/15/19 02/04/25 History metoprolol succinate 100 mg 100 mg PO DAILY 04/15/19 02/04/25 History tablet,extended release 24 hr (Toprol XL) pantoprazole 40 mg tablet,delayed 40 mg PO QAM 04/15/19 02/04/25 History release (Protonix) tolterodine 2 mg tablet (Detrol) 2 mg PO Q12H 04/15/19 02/04/25 History cholecalciferol (vitamin D3) 25 25 mcg PO DAILY 08/03/24 02/04/25 History mcg (1,000 unit) capsule cyanocobalamin (vitamin B-12) 1,000 mcg PO DAILY 08/03/24 02/04/25 History 1,000 mcg capsule ferrous sulfate 325 mg (65 mg 325 mg PO DAILY 08/03/24 02/04/25 History iron) tablet (Feosol) tirzepatide 7.5 mg/0.5 mL 7.5 mg subcut WEEKLY 08/03/24 02/04/25 History subcutaneous pen injector (Mounjaro) acetaminophen 500 mg tablet 500 mg PO Q6H PRN pain 01/28/25 02/04/25 History (Tylenol Extra Strength) Laboratory Tests 02/04/25 08:29 POC Capillary Glucose 126 H mg/dl (65-105) Patient hx anesthesia problems: none Family hx anesthesia problems: none Results Review: All pre-operative results and documents have been reviewed as part of the pre-operative evaluation. [facility] Past Medical History Medical History Arthritis Psoriasis Diarrhea Wears glasses Vertigo Claustrophobia High cholesterol Hypertension GERD (gastroesophageal reflux disease) Anxiety Anemia Diabetes History of bronchitis History of blood transfusion Surgical History Surgical History S/P hysterectomy S/P surgical amputation of finger S/P bladder repair S/P cholecystectomy S/P knee surgery History of salpingo-oophorectomy H/O hernia repair lap rep of incarcerated incisional hernia with symbotex mesh, Da Curry 11/25/16 Family History Family History Father Family history of lung cancer Other Diabetes mellitus Family history of allergic disorder Family history of tuberculosis Hypertension Social History Social History Smoking status: Former smoker Tobacco type: cigarettes Alcohol intake: never Substance use: never Substance use type: does not use Living arrangements: with family Occupation/Education: retired Gender identity (if verbalized by the patient): Female Spiritual care concerns: No Anes - Eval Final PreProcedure Day of Procedure 02/04/25 08:57 Patient weight: obese Heart: regular rate and rhythm Lungs: clear to auscultation Airway: Mallampati scale class II Neurological: alert and oriented Last oral intake: >/= 8 hours ASA classification: III Emergent: no Anesthetic plan: proceed Results Review: All pre-operative results and documents have been reviewed as part of the pre-operative evaluation. Informed Consent: The patient's anesthetic plan and its attendant risks and benefits were discussed with the patient/family/POA. Questions were solicited and answers provided to the satisfaction of the patient/family/POA.
--- NOTE | 2025-02-04 09:07 | W.PM.PROC2 ---
Procedure Note - Detailed Date of Procedure 02/09/25 Pre-op Diagnosis Screening/Positive Cologuard Post-op Diagnosis Same Procedure Performed colononscopy Surgeon Galindo Harman MD Anesthesia General
--- NOTE | 2025-02-04 09:25 | S_PTH ---
PATIENT: Julianne Herring LOC: [facility] Choi#:[id number] AGE/SX: 74/F ROOM: RE02/04/[address]: Sourav Willosn MD : 1950 BED: DIS: 02/04/2025 SPEC #: [id number] RECD: 02/04/25 09:52 STATUS: MONI GRAHAM #: [id number] DAYAMI: 02/04/25 09:[address]: Galindo Harman DEPT: [facility] Surgical RECD BY: Rosa Williamson ENTERED: 02/04/25 09:53 SP TYPE: Surgical OTHR DR: MD Sourav Prasad MD Tissues: A - Colon Polypectomy Procedures: Hematoxylin and Eosin Stain Gross and Microscopic Level 4
[2025-02-04 09:27] VITALS: BP 117/63; PULSE 78; RESP 21; O2SAT 97
[2025-02-04 09:37] VITALS: BP 129/63; PULSE 77; RESP 18; O2SAT 100
[2025-02-04 09:47] VITALS: BP 134/80; PULSE 75; RESP 17; O2SAT 100
--- NOTE | 2025-02-04 11:08 | SUR.PREOP ---
0815: DR JOE NOTIFIED PT HAS BEEN WEARING A HOLTER MONITOR FOR 5 DAYS, IT NEEDED THE BATTERIES CHANGED TODAY SO SHE LEFT IT AT HOME, SHE WILL PUT IT BACK ON SOON SHE IS HOME FROM PROCEDURE, PT WILL BE WEARING THE MONITOR FOR ONE MONTH TOTAL FOR NEW ONSET LEFT BUNDLE BRANCH BLOCK, ASBESTOS WORKER HELPER IS DR GOFF, NO NEW ORDERS, DR JOE SEEING PT.
== END 2025-02-04 09:56 ==
PROVIDERS: Internal Medicine Gastroenterology; PCP Family Medicine; Referring Provider Nurse Practitioner Family; Visit Provider Internal Medicine Gastroenterology
PROC: 0DJD8ZZ Inspection of Lower Intestinal Tract, Via Natural or Artificial Opening Endoscopic (ICD-10-PCS; CPT 45378; principal; 2025-02-04 09:30)
DX: Z12.11 Encounter for screening for malignant neoplasm of colon (principal); K62.1 Rectal polyp; K57.30 Diverticulosis of large intestine without perforation or abscess without bleeding; R19.5 Other fecal abnormalities; E11.9 Type 2 diabetes mellitus without complications; Z87.891 Personal history of nicotine dependence; E66.9 Obesity, unspecified; Z68.31 Body mass index [BMI] 31.0-31.9, adult
CPT/HCPCS: 45385; 82948; 88305; J2704; J7120